=== PATIENT | male | born 1940 ===

== ENCOUNTER 2020-02-25 07:49 | Observation (INO) | payer MEDICARE ==
--- NOTE | 2020-02-25 08:30 | Emergency Department Report ---
ED Altered Mental Status HPI - General Chief Complaint: Altered Mental Status Stated Complaint: ALTERED MENTAL STATUS Time Seen by Provider: 02/25/20 08:22 Source: police, EMS Mode of arrival: Stretcher Limitations: Altered Mental Status - History of Present Illness Initial Comments: Patient is a 69-year-old male found by police wandering on the street in a diaper unable to provide personal information. Patient presents as altered mental status, unable to communicate any pertinent history, tracks interviewer with eyes, answers incomprehensibly. - Related Data Allergies Allergy/AdvReac Type Severity Reaction Status Date / Time Unable to Assess Allergy Unverified 02/25/20 09:12 ED Review of Systems ROS: Stated complaint: ALTERED MENTAL STATUS Other details as noted in HPI Comment: Unobtainable due to pts medical conditions ED Past Medical Hx - Past Medical History Additional medical history: PMH unknown ED Physical Exam - General Limitations: Altered Mental Status General appearance: alert, in no apparent distress - Head Head exam: Present: atraumatic, normocephalic - Eye Eye exam: Present: normal appearance - ENT ENT exam: Present: mucous membranes moist - Neck Neck exam: Present: normal inspection - Respiratory Respiratory exam: Present: normal lung sounds bilaterally. Absent: respiratory distress - Cardiovascular Cardiovascular Exam: Present: regular rate, normal rhythm. Absent: systolic murmur, diastolic murmur, rubs, gallop - GI/Abdominal GI/Abdominal exam: Present: soft, normal bowel sounds - Rectal Rectal exam: Present: deferred - Extremities Exam Extremities exam: Present: normal inspection - Back Exam Back exam: Present: normal inspection - Neurological Exam Neurological exam: Present: alert, altered - Psychiatric Psychiatric exam: Present: normal affect - Skin Skin exam: Present: warm, dry, intact, normal color. Absent: rash ED Course Vital Signs 02/25/20 02/25/20 02/25/20 08:02 08:16 08:20 Temperature 96.7 F L Pulse Rate 78 82 Respiratory 22 19 Rate Blood Pressure 144/75 Blood Pressure 140/84 [Right] O2 Sat by Pulse 97 98 96 Oximetry 02/25/20 02/25/20 02/25/20 08:40 09:00 09:20 Temperature Pulse Rate 73 88 122 H Respiratory 16 19 18 Rate Blood Pressure 144/75 141/94 141/94 Blood Pressure [Right] O2 Sat by Pulse 98 93 95 Oximetry 02/25/20 02/25/20 02/25/20 09:40 10:12 10:40 Temperature Pulse Rate 87 Respiratory 15 10 L 16 Rate Blood Pressure 151/79 151/79 127/67 Blood Pressure [Right] O2 Sat by Pulse 99 97 97 Oximetry 02/25/20 02/25/20 02/25/20 10:49 11:00 11:20 Temperature 98.4 F Pulse Rate 92 H 99 H Respiratory 14 15 Rate Blood Pressure 151/79 121/59 Blood Pressure [Right] O2 Sat by Pulse 94 98 Oximetry 02/25/20 02/25/20 11:40 12:00 Temperature Pulse Rate 104 H 105 H Respiratory 17 16 Rate Blood Pressure 107/62 126/75 Blood Pressure [Right] O2 Sat by Pulse 96 93 Oximetry - Reevaluation(s) Reevaluation #1: 02/25/20 12:53 Police at bedside unable to identify male with fingerprinting. Despite several hours of observation in the emergency department, unable to identify patient, no missing reports filed, social service assistant unable to provide additional support at present time. Patient remains alert in no acute distress, is responsive to questioning but unable to phonate complete responses. Patient speaks without slurring, however, is largely aphasic with responses. 02/25/20 12:54 - Lab Data Result diagrams: 02/25/20 08:46 02/25/20 08:46 Lab Results 02/25/20 02/25/20 02/25/20 Range/Units 08:46 08:46 08:46 WBC 11.1 H (4.5-11.0) K/mm3 RBC 5.46 H (3.65-5.03) M/mm3 Hgb 16.0 H (11.8-15.2) gm/dl Hct 48.4 H (35.5-45.6) % MCV 89 (84-94) fl MCH 29 (28-32) pg MCHC 33 (32-34) % RDW 15.4 H (13.2-15.2) % Plt Count 204 (140-440) K/mm3 Lymph % (Auto) 17.8 (13.4-35.0) % [place] % (Auto) 7.4 H (0.0-7.3) % Eos % (Auto) 2.3 (0.0-4.3) % Baso % (Auto) 0.6 (0.0-1.8) % Lymph # (Auto) 2.0 (1.2-5.4) K/mm3 [place] # (Auto) 0.8 (0.0-0.8) K/mm3 Eos # (Auto) 0.3 (0.0-0.4) K/mm3 Baso # (Auto) 0.1 (0.0-0.1) K/mm3 Seg Neutrophils % 71.9 H (40.0-70.0) % Seg Neutrophils # 8.0 H (1.8-7.7) K/mm3 Sodium 136 L (137-145) mmol/L Potassium 4.4 (3.6-5.0) mmol/L Chloride 104.7 (98-107) mmol/L Carbon Dioxide 23 (22-30) mmol/L Anion Gap 13 mmol/L BUN 11 (9-20) mg/dL Creatinine 0.8 (0.8-1.3) mg/dL Estimated GFR > 60 ml/min BUN/Creatinine Ratio 14 % Glucose 107 H (75-100) mg/dL Calcium 9.0 (8.4-10.2) mg/dL Total Bilirubin 0.40 (0.1-1.2) mg/dL AST 24 (5-40) units/L ALT 20 (7-56) units/L Alkaline Phosphatase 77 (35-129) units/L Ammonia 33.0 (25-60) umol/L Troponin T < 0.010 (0.00-0.029) ng/mL Total Protein 6.7 (6.3-8.2) g/dL Albumin 3.6 L (3.9-5) g/dL Albumin/Globulin Ratio 1.2 % Urine Color (Yellow) Urine Turbidity (Clear) Urine pH (5.0-7.0) Ur Specific [place] (1.003-1.030) Urine Protein (Negative) mg/dL Urine Glucose (UA) (Negative) mg/dL Urine Ketones (Negative) mg/dL Urine Blood (Negative) Urine Nitrite (Negative) Urine Bilirubin (Negative) Urine Urobilinogen (<2.0) mg/dL Ur Leukocyte Esterase (Negative) Urine WBC (Auto) (0.0-6.0) /HPF Urine RBC (Auto) (0.0-6.0) /HPF U Epithel Cells (Auto) (0-13.0) /HPF Urine Mucus /HPF Salicylates (2.8-20.0) mg/dL Acetaminophen (10.0-30.0) ug/mL Plasma/Serum Alcohol (0-0.07) % 02/25/20 02/25/20 02/25/20 Range/Units 08:46 08:46 08:46 WBC (4.5-11.0) K/mm3 RBC (3.65-5.03) M/mm3 Hgb (11.8-15.2) gm/dl Hct (35.5-45.6) % MCV (84-94) fl MCH (28-32) pg MCHC (32-34) % RDW (13.2-15.2) % Plt Count (140-440) K/mm3 Lymph % (Auto) (13.4-35.0) % [place] % (Auto) (0.0-7.3) % Eos % (Auto) (0.0-4.3) % Baso % (Auto) (0.0-1.8) % Lymph # (Auto) (1.2-5.4) K/mm3 [place] # (Auto) (0.0-0.8) K/mm3 Eos # (Auto) (0.0-0.4) K/mm3 Baso # (Auto) (0.0-0.1) K/mm3 Seg Neutrophils % (40.0-70.0) % Seg Neutrophils # (1.8-7.7) K/mm3 Sodium (137-145) mmol/L Potassium (3.6-5.0) mmol/L Chloride (98-107) mmol/L Carbon Dioxide (22-30) mmol/L Anion Gap mmol/L BUN (9-20) mg/dL Creatinine (0.8-1.3) mg/dL Estimated GFR ml/min BUN/Creatinine Ratio % Glucose (75-100) mg/dL Calcium (8.4-10.2) mg/dL Total Bilirubin (0.1-1.2) mg/dL AST (5-40) units/L ALT (7-56) units/L Alkaline Phosphatase (35-129) units/L Ammonia (25-60) umol/L Troponin T (0.00-0.029) ng/mL Total Protein (6.3-8.2) g/dL Albumin (3.9-5) g/dL Albumin/Globulin Ratio % Urine Color (Yellow) Urine Turbidity (Clear) Urine pH (5.0-7.0) Ur Specific [place] (1.003-1.030) Urine Protein (Negative) mg/dL Urine Glucose (UA) (Negative) mg/dL Urine Ketones (Negative) mg/dL Urine Blood (Negative) Urine Nitrite (Negative) Urine Bilirubin (Negative) Urine Urobilinogen (<2.0) mg/dL Ur Leukocyte Esterase (Negative) Urine WBC (Auto) (0.0-6.0) /HPF Urine RBC (Auto) (0.0-6.0) /HPF U Epithel Cells (Auto) (0-13.0) /HPF Urine Mucus /HPF Salicylates 1.3 L (2.8-20.0) mg/dL Acetaminophen 5.0 L (10.0-30.0) ug/mL Plasma/Serum Alcohol < 0.01 (0-0.07) % 02/25/20 Range/Units 09:52 WBC (4.5-11.0) K/mm3 RBC (3.65-5.03) M/mm3 Hgb (11.8-15.2) gm/dl Hct (35.5-45.6) % MCV (84-94) fl MCH (28-32) pg MCHC (32-34) % RDW (13.2-15.2) % Plt Count (140-440) K/mm3 Lymph % (Auto) (13.4-35.0) % [place] % (Auto) (0.0-7.3) % Eos % (Auto) (0.0-4.3) % Baso % (Auto) (0.0-1.8) % Lymph # (Auto) (1.2-5.4) K/mm3 [place] # (Auto) (0.0-0.8) K/mm3 Eos # (Auto) (0.0-0.4) K/mm3 Baso # (Auto) (0.0-0.1) K/mm3 Seg Neutrophils % (40.0-70.0) % Seg Neutrophils # (1.8-7.7) K/mm3 Sodium (137-145) mmol/L Potassium (3.6-5.0) mmol/L Chloride (98-107) mmol/L Carbon Dioxide (22-30) mmol/L Anion Gap mmol/L BUN (9-20) mg/dL Creatinine (0.8-1.3) mg/dL Estimated GFR ml/min BUN/Creatinine Ratio % Glucose (75-100) mg/dL Calcium (8.4-10.2) mg/dL Total Bilirubin (0.1-1.2) mg/dL AST (5-40) units/L ALT (7-56) units/L Alkaline Phosphatase (35-129) units/L Ammonia (25-60) umol/L Troponin T (0.00-0.029) ng/mL Total Protein (6.3-8.2) g/dL Albumin (3.9-5) g/dL Albumin/Globulin Ratio % Urine Color Yellow (Yellow) Urine Turbidity Clear (Clear) Urine pH 5.0 (5.0-7.0) Ur Specific [place] 1.018 (1.003-1.030) Urine Protein <15 mg/dl (Negative) mg/dL Urine Glucose (UA) Neg (Negative) mg/dL Urine Ketones Neg (Negative) mg/dL Urine Blood Neg (Negative) Urine Nitrite Neg (Negative) Urine Bilirubin Neg (Negative) Urine Urobilinogen 2.0 (<2.0) mg/dL Ur Leukocyte Esterase Neg (Negative) Urine WBC (Auto) 2.0 (0.0-6.0) /HPF Urine RBC (Auto) 4.0 (0.0-6.0) /HPF U Epithel Cells (Auto) 1.0 (0-13.0) /HPF Urine Mucus 2+ /HPF Salicylates (2.8-20.0) mg/dL Acetaminophen (10.0-30.0) ug/mL Plasma/Serum Alcohol (0-0.07) % Vital Signs 02/25/20 02/25/20 02/25/20 08:02 08:16 08:20 Temperature 96.7 F L Pulse Rate 78 82 Respiratory 22 19 Rate Blood Pressure 144/75 Blood Pressure 140/84 [Right] O2 Sat by Pulse 97 98 96 Oximetry 02/25/20 02/25/20 02/25/20 08:40 09:00 09:20 Temperature Pulse Rate 73 88 122 H Respiratory 16 19 18 Rate Blood Pressure 144/75 141/94 141/94 Blood Pressure [Right] O2 Sat by Pulse 98 93 95 Oximetry 02/25/20 02/25/20 02/25/20 09:40 10:12 10:40 Temperature Pulse Rate 87 Respiratory 15 10 L 16 Rate Blood Pressure 151/79 151/79 127/67 Blood Pressure [Right] O2 Sat by Pulse 99 97 97 Oximetry 02/25/20 02/25/20 02/25/20 10:49 11:00 11:20 Temperature 98.4 F Pulse Rate 92 H 99 H Respiratory 14 15 Rate Blood Pressure 151/79 121/59 Blood Pressure [Right] O2 Sat by Pulse 94 98 Oximetry 02/25/20 02/25/20 11:40 12:00 Temperature Pulse Rate 104 H 105 H Respiratory 17 16 Rate Blood Pressure 107/62 126/75 Blood Pressure [Right] O2 Sat by Pulse 96 93 Oximetry - EKG Data -: EKG Interpreted by Me (Sinus rhythm at 95, no ST-T changes, normal QRS) - Radiology Data Radiology results: report reviewed CHEST 1 VIEW INDICATION / CLINICAL INFORMATION: Altered Mental Status. COMPARISON: None available. FINDINGS: SUPPORT DEVICES: None. HEART / MEDIASTINUM: No significant abnormality. LUNGS / PLEURA: Small peripheral nodule in the right upper lung No pneumothorax. ADDITIONAL FINDINGS: No significant additional findings. IMPRESSION: Small peripheral nodule in the right upper lung may represent a calcified granuloma. No other significant abnormality. Signer Name: Jose Sim MD FACR Signed: 02/25/2020 8:47 AM Workstation Name: [id number] Transcribed By: MS Dictated By: Jose Sim MD Electr onically Authenticated By: Jose Sim MD Signed Date/Time: 02/25/[address] SCAN OF THE HEAD: INDICATION / CLINICAL INFORMATION: 69 years Male; Altered Mental Status. TECHNIQUE: Routine CT head without contrast. All CT scans at this location are performed using CT dose reduction for ALARA by means of automated exposure control. COMPARISON: None. FINDINGS: BRAIN / INTRACRANIAL CONTENTS: No acute hemorrhage, mass effect, midline shift, hydrocephalus, or acute, large territorial infarct. No chronic infarct or focal atrophy. Cortical involution more on the left side; volume loss in the medial temporal lobe more on the left side; mild ventricular asymmetry, larger on the left side, probably due to compensatory enlargement; subtle white matter periventricular low-attenua tion attenuation areas probably due to chronic small vessel disease CRANIOCERVICAL JUNCTION: No significant abnormality. ORBITS: No significant abnormality of visualized orbits. SINUSES / MASTOIDS: No significant abnormality of the visualized paranasal sinuses or mastoid air cells. ADDITIONAL FINDINGS: None. IMPRESSION: No acute focal parenchymal lesion in the brain; cortical involution more on the left side Signer Name: Cm Hobson MD Signed: 02/25/2020 10:51 AM Workstation Name: [id number] Transcribed By: BS Dictated By: Cm Calvo MD Electronically Authenticated By: Cm Calvo MD Signed Date/Time: 02/25/20 1051 Critical care attestation.: If time is entered above; I have spent that time in minutes in the direct care of this critically ill patient, excluding procedure time. ED Disposition Clinical Impression: Altered mental status Disposition: DC-09 OP ADMIT IP TO THIS HOSP Is pt being admited?: Yes Condition: Stable
--- NOTE | 2020-02-25 08:52 | XRay Report ---
CHEST 1 VIEW INDICATION / CLINICAL INFORMATION: Altered Mental Status. COMPARISON: None available. FINDINGS: SUPPORT DEVICES: None. HEART / MEDIASTINUM: No significant abnormality. LUNGS / PLEURA: Small peripheral nodule in the right upper lung No pneumothorax. ADDITIONAL FINDINGS: No significant additional findings. IMPRESSION: Small peripheral nodule in the right upper lung may represent a calcified granuloma. No other signifi cant abnormality. Signer Name: Joes Sim MD FACR Signed: 02/25/2020 8:47 AM Workstation Name: [id number]
[2020-02-25 09:45] LABS: Basophils # (Auto) 0.1 K/mm3 (0.0-0.1); Basophils % (Auto) 0.6 % (0.0-1.8); Eosinophils # (Auto) 0.3 K/mm3 (0.0-0.4); Eosinophils % (Auto) 2.3 % (0.0-4.3); Hematocrit 48.4 % (35.5-45.6); Lymphocytes % (Auto) 17.8 % (13.4-35.0); Mean Corpuscular HGB Conc 33 % (32-34); Mean Corpuscular Volume 89 fl (84-94); Monocytes # (Auto) 0.8 K/mm3 (0.0-0.8); Monocytes % (Auto) 7.4 % (0.0-7.3); Platelet Count 204 K/mm3 (140-440); Red Blood Count 5.46 M/mm3 (3.65-5.03); Red Cell Distribution Width 15.4 % (13.2-15.2)
[2020-02-25 09:52] LABS: Alanine Aminotransferase 20 units/L (7-56); Albumin 3.6 g/dL (3.9-5); BUN/Creatinine Ratio 14; Blood Urea Nitrogen 11 mg/dL (9-20); Hemolysis Index 41
[2020-02-25 10:20] LABS: Bilirubin,Urine NEG (Negative); Blood,Urine NEG (Negative); Color,Urine Yellow (Yellow); Mucus,Urine 2+ /HPF; Protein,Urine <15 mg/dL mg/dL (Negative)
--- NOTE | 2020-02-25 10:55 | Cat Scan Report ---
NONENHANCED CT SCAN OF THE HEAD: INDICATION / CLINICAL INFORMATION: 69 years Male; Altered Mental Status. TECHNIQUE: Routine CT head without contrast. All CT scans at this location are performed using CT dos e reduction for ALARA by means of automated exposure control. COMPARISON: None. FINDINGS: BRAIN / INTRACRANIAL CONTENTS: No acute hemorrhage, mass effect, midline shift, hydrocephalus, or ac jamul, large territorial infarct. No chronic infarct or focal atrophy. Cortical involution more on the left side; volume loss in the medial temporal lobe more on the left side; mild ventricular asymmetry, larger on the left side, probably due to compensatory enlargement; subtle white matter periventricul ar low-attenuation attenuation areas probably due to chronic small vessel disease CRANIOCERVICAL JUNCTION: No significant abnormality. ORBITS: No significant abnormality of visualized orbits. SINUSES / MASTOIDS: No significant abnormality of the visualized paranasal sinuses or mastoid air jay ls. ADDITIONAL FINDINGS: None. IMPRESSION: No acute focal parenchymal lesion in the brain; cortical involution more on the left side Signer Name: Cm Hobson MD Signed: 02/25/2020 10:51 AM Workstation Name: [id number]
--- NOTE | 2020-02-25 14:24 | History and Physical Report ---
History of Present Illness Date of examination: 02/25/20 Date of admission: 02/25/2020 Chief complaint: Altered level of consciousness Found by police wandering on the roads History of present illness: 69-year-old male patient was found by police wandering on the street in a diaper confused and unable to provide personal information. Patient presents as altered mental status, unable to communicate or give any information including his name Patient is confused, very calm, not in acute distress, No other history available Initial work-up with CT head without contrast no acute abnormality, cortical involution in the left side Vital signs stable, CBC and CMP reveal mild leukocytosis, very minimal hyponatremia Urine analysis within normal limits Past History Past Medical History: No medical history (Unknown) Past Surgical History: No surgical history (Unknown) Social history: no significant social history (Unknown) Family history: no significant family history (Unknown) Medications and Allergies Allergies Allergy/AdvReac Type Severity Reaction Status Date / Time clonidine AdvReac Unknown Verified 02/25/20 16:01 Home Medications Medication Instructions Recorded Confirmed Last Taken Type AtorvaSTATin [Lipitor] 40 mg PO QHS 02/25/20 02/25/20 Unknown History Divalproex Sodium [Depakote 125 mg PO DAILY 02/25/20 02/25/20 Unknown History Sprinkle] Furosemide 20 mg PO DAILY 02/25/20 02/25/20 Unknown History Memantine 10 mg PO BID 02/25/20 02/25/20 Unknown History Metoprolol 50 mg PO BID 02/25/20 02/25/20 Unknown History RX: Aspirin 325 mg PO QDAY 02/25/20 02/25/20 Unknown History Review of Systems ROS unobtainable: due to mental status Exam - Constitutional Vitals: Temp Pulse Resp BP Pulse Ox 98.4 F 105 H 16 126/75 93 02/25/20 10:49 02/25/20 12:00 02/25/20 12:00 02/25/20 12:00 02/25/20 12:00 General appearance: Present: no acute distress, obese, other (Confused, nonverbal) - EENT Eyes: Present: PERRL, EOM intact - Neck Neck: Present: supple, normal ROM - Respiratory Respiratory effort: normal Respiratory: bilateral: diminished, negative: rales, rhonchi, wheezing - Cardiovascular Rhythm: regular Heart Sounds: Present: S1 & S2 - Extremities Extremities: no ischemia, No edema - Abdominal General gastrointestinal: Present: soft, non-tender, non-distended, normal bowel sounds - Integumentary Integumentary: Present: clear, warm - Musculoskeletal Musculoskeletal: other (Unable to assess as patient is not cooperative) - Psychiatric Psychiatric: other ( confused nonverbal) - Neurologic Neurologic: moves all extremities, other (Nonverbal) HEART Score - HEART Score Troponin: Troponin T < 0.010 ng/mL (0.00-0.029) 02/25/20 08:46 Results - Labs CBC & Chem 7: 02/25/20 08:46 02/25/20 08:46 Labs: Abnormal lab results 02/25/20 02/25/20 02/25/20 Range/Units 08:46 08:46 08:46 WBC 11.1 H (4.5-11.0) K/mm3 RBC 5.46 H (3.65-5.03) M/mm3 Hgb 16.0 H (11.8-15.2) gm/dl Hct 48.4 H (35.5-45.6) % RDW 15.4 H (13.2-15.2) % [place] % (Auto) 7.4 H (0.0-7.3) % Seg Neutrophils % 71.9 H (40.0-70.0) % Seg Neutrophils # 8.0 H (1.8-7.7) K/mm3 Sodium 136 L (137-145) mmol/L Glucose 107 H (75-100) mg/dL Albumin 3.6 L (3.9-5) g/dL Salicylates 1.3 L (2.8-20.0) mg/dL Acetaminophen (10.0-30.0) ug/mL 02/25/20 Range/Units 08:46 WBC (4.5-11.0) K/mm3 RBC (3.65-5.03) M/mm3 Hgb (11.8-15.2) gm/dl Hct (35.5-45.6) % RDW (13.2-15.2) % [place] % (Auto) (0.0-7.3) % Seg Neutrophils % (40.0-70.0) % Seg Neutrophils # (1.8-7.7) K/mm3 Sodium (137-145) mmol/L Glucose (75-100) mg/dL Albumin (3.9-5) g/dL Salicylates (2.8-20.0) mg/dL Acetaminophen 5.0 L (10.0-30.0) ug/mL Assessment and Plan --Metabolic encephalopathy; Neurochecks, CT head negative Consider MRI brain if no improvement Consider neurology evaluation --Obesity; BMI 33.5 May need weight reduction when medically stable --DVT prophylaxis; Lovenox
[2020-02-25] MEDS ORDERED: SODIUM CHLORIDE 0.9% 1000 ML 1,000 ML IV SCH (14:30)
[2020-02-25] MEDS: FUROSEMIDE 20 MG TAB PO SCH (17:18)
[2020-02-25] MEDS: DIVALPROEX SPRINKLE 125 MG CAP PO SCH (17:49)
[2020-02-25] MEDS ORDERED: ENOXAPARIN 40 MG/0.4 ML INJ SUB-Q SCH (22:00)
[2020-02-25] MEDS: MEMANTINE 10 MG TAB PO SCH (22:49)
[2020-02-26] MEDS ORDERED: ASPIRIN 325 MG TAB PO SCH (10:00)
--- NOTE | 2020-02-26 10:26 | Progress Note ---
History Interval history: I have seen and examined the patient at the bedside this morning Patient is still confused however alert and awake not in acute distress When we are trying to feed he is tolerating Vital signs stable Hospitalist Physical - Constitutional Vitals: Temp Pulse Resp BP Pulse Ox 98.6 F 94 H 16 118/63 89 02/26/20 08:58 02/26/20 08:58 02/26/20 08:58 02/26/20 08:58 02/26/20 09:26 General appearance: Present: no acute distress, obese, other (Confused, nonverbal) HEART Score - HEART Score Troponin: Troponin T < 0.010 ng/mL (0.00-0.029) 02/25/20 08:46 Results - Labs CBC & Chem 7: 02/25/20 08:46 02/25/20 08:46 Labs: Laboratory Last Values WBC 11.1 K/mm3 (4.5-11.0) H 02/25/20 08:46 RBC 5.46 M/mm3 (3.65-5.03) H 02/25/20 08:46 Hgb 16.0 gm/dl (11.8-15.2) H 02/25/20 08:46 Hct 48.4 % (35.5-45.6) H 02/25/20 08:46 MCV 89 fl (84-94) 02/25/20 08:46 MCH 29 pg (28-32) 02/25/20 08:46 MCHC 33 % (32-34) 02/25/20 08:46 RDW 15.4 % (13.2-15.2) H 02/25/20 08:46 Plt Count 204 K/mm3 (140-440) 02/25/20 08:46 Lymph % (Auto) 17.8 % (13.4-35.0) 02/25/20 08:46 [place] % (Auto) 7.4 % (0.0-7.3) H 02/25/20 08:46 Eos % (Auto) 2.3 % (0.0-4.3) 02/25/20 08:46 Baso % (Auto) 0.6 % (0.0-1.8) 02/25/20 08:46 Lymph # (Auto) 2.0 K/mm3 (1.2-5.4) 02/25/20 08:46 [place] # (Auto) 0.8 K/mm3 (0.0-0.8) 02/25/20 08:46 Eos # (Auto) 0.3 K/mm3 (0.0-0.4) 02/25/20 08:46 Baso # (Auto) 0.1 K/mm3 (0.0-0.1) 02/25/20 08:46 Seg Neutrophils % 71.9 % (40.0-70.0) H 02/25/20 08:46 Seg Neutrophils # 8.0 K/mm3 (1.8-7.7) H 02/25/20 08:46 Sodium 136 mmol/L (137-145) L 02/25/20 08:46 Potassium 4.4 mmol/L (3.6-5.0) 02/25/20 08:46 Chloride 104.7 mmol/L (98-107) 02/25/20 08:46 Carbon Dioxide 23 mmol/L (22-30) 02/25/20 08:46 Anion Gap 13 mmol/L 02/25/20 08:46 BUN 11 mg/dL (9-20) 02/25/20 08:46 Creatinine 0.8 mg/dL (0.8-1.3) 02/25/20 08:46 Estimated GFR > 60 ml/min 02/25/20 08:46 BUN/Creatinine Ratio 14 % 02/25/20 08:46 Glucose 107 mg/dL (75-100) H 02/25/20 08:46 Calcium 9.0 mg/dL (8.4-10.2) 02/25/20 08:46 Total Bilirubin 0.40 mg/dL (0.1-1.2) 02/25/20 08:46 AST 24 units/L (5-40) 02/25/20 08:46 ALT 20 units/L (7-56) 02/25/20 08:46 Alkaline Phosphatase 77 units/L (35-129) 02/25/20 08:46 Ammonia 33.0 umol/L (25-60) 02/25/20 08:46 Troponin T < 0.010 ng/mL (0.00-0.029) 02/25/20 08:46 Total Protein 6.7 g/dL (6.3-8.2) 02/25/20 08:46 Albumin 3.6 g/dL (3.9-5) L 02/25/20 08:46 Albumin/Globulin Ratio 1.2 % 02/25/20 08:46 Urine Color Yellow (Yellow) 02/25/20 09:52 Urine Turbidity Clear (Clear) 02/25/20 09:52 Urine pH 5.0 (5.0-7.0) 02/25/20 09:52 Ur Specific [place] 1.018 (1.003-1.030) 02/25/20 09:52 Urine Protein <15 mg/dl mg/dL (Negative) 02/25/20 09:52 Urine Glucose (UA) Neg mg/dL (Negative) 02/25/20 09:52 Urine Ketones Neg mg/dL (Negative) 02/25/20 09:52 Urine Blood Neg (Negative) 02/25/20 09:52 Urine Nitrite Neg (Negative) 02/25/20 09:52 Urine Bilirubin Neg (Negative) 02/25/20 09:52 Urine Urobilinogen 2.0 mg/dL (<2.0) 02/25/20 09:52 Ur Leukocyte Esterase Neg (Negative) 02/25/20 09:52 Urine WBC (Auto) 2.0 /HPF (0.0-6.0) 02/25/20 09:52 Urine RBC (Auto) 4.0 /HPF (0.0-6.0) 02/25/20 09:52 U Epithel Cells (Auto) 1.0 /HPF (0-13.0) 02/25/20 09:52 Urine Mucus 2+ /HPF 02/25/20 09:52 Salicylates 1.3 mg/dL (2.8-20.0) L 02/25/20 08:46 Acetaminophen 5.0 ug/mL (10.0-30.0) L 02/25/20 08:46 Plasma/Serum Alcohol < 0.01 % (0-0.07) 02/25/20 08:46 Eng/IV: Voiding Method Condom Catheter IV Catheter Type [Right Wrist] Peripheral IV Active Medications - Current Medications Current Medications: Generic Name Dose Route Start Last Admin Trade Name Freq PRN Reason Stop Dose Admin Aspirin 325 mg 02/26/20 10:00 Aspirin 325 Mg Tab PO QDAY TROY Atorvastatin Calcium 40 mg 02/25/20 22:00 02/25/20 22:48 Atorvastatin 40 Mg Tab PO 40 mg QHS TROY Administration Divalproex Sodium 125 mg 02/25/20 18:00 02/25/20 17:49 Divalproex Sprinkle 125 Mg Cap PO 125 mg DAILY TROY Administration Enoxaparin Sodium 40 mg 02/25/20 22:00 02/25/20 22:48 Enoxaparin 40 Mg/0.4 Ml Inj SUB-Q 40 mg QDAY@2200 TROY Administration Protocol Furosemide 20 mg 02/25/20 17:00 02/25/20 17:18 Furosemide 20 Mg Tab PO 20 mg QDAY TROY Administration Sodium Chloride 1,000 mls @ 100 mls/hr 02/25/20 14:30 02/26/20 06:29 Nacl 0.9% 1000 Ml IV 100 mls/hr DIRECT TROY Administration Memantine 10 mg 02/25/20 22:00 02/25/20 22:49 Memantine 10 Mg Tab PO 10 mg Q12HR TROY Administration
[2020-02-26 12:39] VITALS: BP 127/82
[2020-02-26] MEDS: MEMANTINE 10 MG TAB PO SCH (12:46)
[2020-02-26] MEDS: DIVALPROEX SPRINKLE 125 MG CAP PO SCH (12:47)
[2020-02-26] MEDS: FUROSEMIDE 20 MG TAB PO SCH (12:51)
--- NOTE | 2020-02-26 15:24 | Discharge Summary ---
Providers - Providers Date of Admission: 02/25/20 14:26 Date of discharge: 02/26/20 Attending physician: NAA LEAL Primary care physician: MERCHANDISING CONSULTANT Hospitalization Condition: Stable Disposition: DC-01 TO HOME OR SELFCARE Time spent for discharge: 32 min Core Measure Documentation - Palliative Care Palliative Care/ Comfort Measures: Not Applicable - Core Measures Any of the following diagnoses?: none Exam - Constitutional Vitals: Temp Pulse Resp BP Pulse Ox 98.9 F 112 H 20 127/82 94 02/26/20 11:19 02/26/20 13:00 02/26/20 11:19 02/26/20 11:19 02/26/20 11:19 General appearance: Present: no acute distress, well-nourished, other (Pleasantly confused) - EENT Eyes: Present: PERRL, EOM intact - Neck Neck: Present: supple, normal ROM - Respiratory Respiratory effort: labored Respiratory: bilateral: diminished, negative: rales, rhonchi, wheezing - Cardiovascular Rhythm: regular Heart Sounds: Present: S1 & S2 - Extremities Extremities: no ischemia, No edema - Abdominal General gastrointestinal: Present: soft, non-tender, non-distended, normal bowel sounds - Integumentary Integumentary: Present: clear, warm - Musculoskeletal Musculoskeletal: strength equal bilaterally - Psychiatric Psychiatric: other (Noncommunicative and confused) - Neurologic Neurologic: other (Noncommunicative confused) Plan Activity: advance as tolerated, fall precautions Diet: other (Diet as tolerated) Additional Instructions: Continuous supervision. Patient's does not want home health services as patient already has a caregiver. Fall precautions. If you have worsening symptoms contact MD or go to emergency room Follow up with: PRIMARY CARE,MD [Primary Care Provider] - 3-5 Days
== END 2020-02-26 18:17 | disposition home or self-care (01) ==
LOC: ED 07:49 → EDBD 14:26 → 3A 14:26 → 4A 21:03
PROVIDERS: ADMIT Internal Medicine; ATTEND Internal Medicine
DX: G93.41 Metabolic encephalopathy (principal); E66.9 Obesity, unspecified; Z68.33 Body mass index [BMI] 33.0-33.9, adult; Z79.82 Long term (current) use of aspirin
CPT/HCPCS: 36415; 70450; 71045; 80053; 81001; 82140; 84484; 85025; 93005; 96360; 96361; 96372; 99285; A9270; G0378; J1650; J7030; 80320; G0480

== ENCOUNTER 2020-08-05 05:57 | Inpatient (IN) | payer MEDICARE, OTHER ==
--- NOTE | 2020-08-05 07:44 | Emergency Department Report ---
HPI - General Chief Complaint: Abdominal Pain Time Seen by Provider: 08/05/20 07:32 - HPI HPI: Room 17 The patient is an 80-year-old male present with a chief complaint of abdominal pain. The patient has a history of dementia and answers "yeah" to all questions. called EMS this evening stating that the patient had abdominal pain. HPI update Spoke with the patient's spouse who states that the patient awakened her this morning at approximate 04: 30 appearing panicked. And when she asked him if he had chest pain he acknowledged yes. She states he acknowledges for approximately 30 minutes until EMS arrived. Upon EMS arrival she states he no longer complained of chest pain but he indicated he had abdominal pain ED Past Medical Hx - Past Medical History Hx Hypertension: Yes Hx CVA: Yes Hx Kidney Stones: Yes Hx Dementia: Yes Additional medical history: high cholesterol, a-fib - Surgical History Past Surgical History?: Yes Additional Surgical History: prostatectomy - Family History Family history: no significant - Social History Smoking Status: Unknown if ever smoked Substance Use Type: None - Medications Home Medications: Home Medications Medication Instructions Recorded Confirmed Last Taken Type Aspirin 325 mg PO QDAY 02/25/20 02/25/20 Unknown History AtorvaSTATin [Lipitor] 40 mg PO QHS 02/25/20 02/25/20 Unknown History Divalproex Sodium [Depakote 125 mg PO DAILY 02/25/20 02/25/20 Unknown History Sprinkle] Furosemide 20 mg PO DAILY 02/25/20 02/25/20 Unknown History Memantine 10 mg PO BID 02/25/20 02/25/20 Unknown History Metoprolol 50 mg PO BID 02/25/20 02/25/20 Unknown History ED Review of Systems ROS: Stated complaint: ABD PAIN, DEMENTIA Other details as noted in HPI Comment: Unobtainable due to pts medical conditions (Dementia) Physical Exam - Physical Exam Vital Signs: Vital Signs 08/05/20 08/05/20 06:22 06:43 Pulse Rate 79 70 Respiratory 15 16 Rate Blood Pressure 134/74 124/73 [Right] O2 Sat by Pulse 97 96 Oximetry Physical Exam: GENERAL: The patient is well-developed well-nourished male lying on stretcher not appearing to be in acute distress. [] HEENT: Normocephalic. Atraumatic. Extraocular motions are intact. Patient has moist mucous membranes. NECK: Supple. Trachea midline CHEST/LUNGS: Clear to auscultation. There is no respiratory distress noted. HEART/CARDIOVASCULAR: Irregularly irregular. There is no tachycardia. There is no gallop rub or murmur. ABDOMEN: Abdomen is soft, nontender. Patient has normal bowel sounds. There is no abdominal distention. SKIN: There is no rash. There is no edema. There is no diaphoresis. NEURO: The patient is awake and alert. The patient is cooperative. The patient answers "yeah" to any question asked of him. The patient has normal speech MUSCULOSKELETAL: There is no evidence of acute injury. ED Course Vital Signs 08/05/20 08/05/20 06:22 06:43 Pulse Rate 79 70 Respiratory 15 16 Rate Blood Pressure 134/74 124/73 [Right] O2 Sat by Pulse 97 96 Oximetry ED Medical Decision Making - Lab Data Result diagrams: 08/05/20 08:07 08/05/20 08:07 Laboratory Tests 08/05/20 08/05/20 08/05/20 08:07 08:07 08:07 WBC 10.9 RBC 5.38 H Hgb 15.9 H Hct 47.7 H MCV 89 MCH 30 MCHC 33 RDW 15.0 Plt Count 206 Lymph % (Auto) 26.7 Bladen % (Auto) 7.4 H Eos % (Auto) 4.3 Baso % (Auto) 0.6 Lymph # (Auto) 2.9 Bladen # (Auto) 0.8 Eos # (Auto) 0.5 H Baso # (Auto) 0.1 Seg Neutrophils % 61.0 Seg Neutrophils # 6.6 PT INR APTT Sodium 141 Potassium 4.4 Chloride 105.8 Carbon Dioxide 25 Anion Gap 15 BUN 11 Creatinine 0.8 Estimated GFR > 60 BUN/Creatinine Ratio 14 Glucose 88 Lactic Acid 1.40 Calcium 8.3 L Total Bilirubin 0.50 AST 19 ALT 16 Alkaline Phosphatase 78 Total Creatine Kinase 53 L CK-MB (CK-2) 1.5 CK-MB (CK-2) Rel Index 2.8 Troponin T < 0.010 Total Protein 6.3 Albumin 3.4 L Albumin/Globulin Ratio 1.2 Lipase 205 H Urine Bilirubin Urine RBC (Auto) Valproic Acid 08/05/20 08/05/20 08/05/20 08:07 08:07 Unknown WBC RBC Hgb Hct MCV MCH MCHC RDW Plt Count Lymph % (Auto) Bladen % (Auto) Eos % (Auto) Baso % (Auto) Lymph # (Auto) Bladen # (Auto) Eos # (Auto) Baso # (Auto) Seg Neutrophils % Seg Neutrophils # PT 13.4 INR 1.03 APTT 30.3 Sodium Potassium Chloride Carbon Dioxide Anion Gap BUN Creatinine Estimated GFR BUN/Creatinine Ratio Glucose Lactic Acid Calcium Total Bilirubin AST ALT Alkaline Phosphatase Total Creatine Kinase CK-MB (CK-2) CK-MB (CK-2) Rel Index Troponin T Total Protein Albumin Albumin/Globulin Ratio Lipase Urine Bilirubin Neg Urine RBC (Auto) 2.0 Valproic Acid 10.1 L - Radiology Data Radiology results: report reviewed (CT abdomen pelvis, chest x-ray), image reviewed (CT abdomen pelvis, chest x-ray) interpreted by me: Chest x-ray-no focal infiltrates, no pneumothorax. [address] [address] XRay Report Signed Patient: SCARLET GUILLEN MR#: [id number] : 1940 Acct:[id number] Age/Sex: 80 / M ADM Date: 08/05/20 Loc: ED Attending Dr: Ordering Physician: GAVINO HAN MD Date of Service: 08/05/20 Procedure(s): XR chest 1V ap Accession Number(s): [id number] cc: GAVINO HAN MD Fluoro Time In Minutes: CHEST 1 VIEW 08/05/2020 11:49 AM INDICATION / CLINICAL INFORMATION: Chest pain. COMPARISON: 02/25/20. FINDINGS: SUPPORT DEVICES: None. HEART / MEDIASTINUM: The heart size and pulmonary vasculature are normal. There is mild calcification in the aortic arch without aneurysm. LUNGS / PLEURA: No significant pulmonary or pleural abnormality. No pneumothorax. ADDITIONAL FINDINGS: No significant additional findings. IMPRESSION: No acute abnormality or significant change. Signer Name: Edward Muhammad MD Signed: 08/05/2020 12:18 PM Workstation Name: [id number] Transcribed By: RT Dictated By: Edward Muhammad MD Electronically Authenticated By: Edward Muhammad MD Signed Date/Time: 08/05/201217 DD/ 17 TD/TT: Print [address] [place] [address] Cat Scan Report Signed Patient: SCARLET GUILLEN MR#: [id number] : 1940 Acct:[id number] Age/Sex: 80 / M ADM Date: 08/05/20 Loc: ED Attending Dr: Ordering Physician: GAVINO HAN MD Date of Service: 08/05/20 Procedure(s): CT abdomen pelvis w con Accession Number(s): [id number] cc: GAVINO HAN MD CT ABDOMEN AND PELVIS WITH CONTRAST HISTORY: Abdominal pain. Acute generalized abdominal pain COMPARISON: None. TECHNIQUE: CT images of the abdomen and pelvis were obtained following administration of intravenous contrast. All CT scans at this location are performed using CT dose reduction for ALARA by means of automated exposure control. CONTRAST: 100 ml of intravenous contrast administered. FINDINGS: Lungs/bones: Lung bases are clear. There are degenerative changes within the spine with bilateral L5 pars defects and grade 1 anterolisthesis of L5 on S1. Abdomen/pelvis: A metallic foreign body is seen near the dome of the liver. The liver is otherwise unremarkable. The gallbladder, spleen containing granulomata, pancreas, adrenals, right kidney, and proximal GI tract appear unremarkable. There is a small simple cyst in the lower pole of the left kidney. Prostate appears to be surgically absent. There is mild smooth circumferential bladder wall thickening with otherwise normal appearance of the bladder. Moderate colonic diverticulosis with no acute inflammatory change identified. IMPRESSION: 1. No acute abnormality identified. 2. Incidental findings as above. Signer Name: Michael Hall MD Signed: 08/05/2020 11:30 AM Workstation Name: [email or web address] Transcribed By: ANDREW Dictated By: Michael Hall MD Electronically Authenticated By: Michael Hall MD Signed Date/Time: 08/05/20 1130 DD/ 1119 TD/TT: Print Cancel - Differential Diagnosis Gastritis, peptic ulcer disease, pancreatitis, mesenteric ischemia, Critical care attestation.: If time is entered above; I have spent that time in minutes in the direct care of this critically ill patient, excluding procedure time. ED Disposition Clinical Impression: Acute abdominal pain, Acute pancreatitis, Chest pain Disposition: OP ADMIT IP TO THIS HOSP Is pt being admited?: Yes Does the pt Need Aspirin: Yes Condition: Fair Instructions: Nonspecific Chest Pain, Adult Referrals: PRIMARY CARE,MD [Primary Care Provider] - 3-5 Days Time of Disposition: 11:48 (Hospitalist paged (Dr. Denny)) Heart Score - HEART Score History: Slightly suspicious EKG: Non-specific Age: > 65 Risk factors: > 3 risk factors or hx of atherosclerotic disease Troponin: < normal limit HEART Score: 5 - EKG Read Time Time EKG Completed: 06:34 EKG Read Time: 06:39
[2020-08-05 08:47] LABS: Basophils # (Auto) 0.1 K/mm3 (0.0-0.1); Basophils % (Auto) 0.6 % (0.0-1.8); Eosinophils # (Auto) 0.5 K/mm3 (0.0-0.4); Eosinophils % (Auto) 4.3 % (0.0-4.3); Hematocrit 47.7 % (35.5-45.6); Hemoglobin 15.9 gm/dl (11.8-15.2); Lymphocytes # (Auto) 2.9 K/mm3 (1.2-5.4); Lymphocytes % (Auto) 26.7 % (13.4-35.0); Mean Corpuscular HGB Conc 33 % (32-34); Mean Corpuscular Volume 89 fl (84-94); Monocytes # (Auto) 0.8 K/mm3 (0.0-0.8); Monocytes % (Auto) 7.4 % (0.0-7.3); Platelet Count 206 K/mm3 (140-440); Red Blood Count 5.38 M/mm3 (3.65-5.03)
[2020-08-05 09:12] LABS: Creatine Kinase MB 1.5 ng/mL (0.0-4.0)
[2020-08-05 09:14] LABS: Alanine Aminotransferase 16 units/L (7-56); Albumin 3.4 g/dL (3.9-5); BUN/Creatinine Ratio 14; Blood Urea Nitrogen 11 mg/dL (9-20); Calcium 8.3 mg/dL (8.4-10.2); Hemolysis Index 21
[2020-08-05 09:47] LABS: INR 1.03 (0.87-1.13)
[2020-08-05 09:52] LABS: Partial Thromboplastin Time 30.3 Sec. (24.2-36.6)
[2020-08-05 10:03] LABS: Bilirubin,Urine NEG (Negative); Blood,Urine NEG (Negative); Color,Urine Yellow (Yellow); Mucus,Urine FEW /HPF; Protein,Urine <15 mg/dL mg/dL (Negative)
--- NOTE | 2020-08-05 11:34 | Cat Scan Report ---
CT ABDOMEN AND PELVIS WITH CONTRAST HISTORY: Abdominal pain. Acute generalized abdominal pain COMPARISON: None. TECHNIQUE: CT images of the abdomen and pelvis were obtained following administration of intravenous contrast. All CT scans at this location are performed using CT dose reduction for ALARA by means of automated exposure control. CONTRAST: 100 ml of intravenous contrast administered. FINDINGS: Lungs/bones: Lung bases are clear. There are degenerative changes within the spine with bilateral L5 pars defects and grade 1 anterolisthesis of L5 on S1. Abdomen/pelvis: A metallic foreign body is seen near the dome of the liver. The liver is otherwise u nremarkable. The gallbladder, spleen containing granulomata, pancreas, adrenals, right kidney, and pr oximal GI tract appear unremarkable. There is a small simple cyst in the lower pole of the left kidne y. Prostate appears to be surgically absent. There is mild smooth circumferential bladder wall thickenin g with otherwise normal appearance of the bladder. Moderate colonic diverticulosis with no acute infl ammatory change identified. IMPRESSION: 1. No acute abnormality identified. 2. Incidental findings as above. Signer Name: Michael Hall MD Signed: 08/05/2020 11:30 AM Workstation Name: [email or web address]
[2020-08-05] MEDS ORDERED: ASPIRIN 325 MG TAB PO ONE (11:49)
--- NOTE | 2020-08-05 12:09 | History and Physical Report ---
History of Present Illness Chief complaint: His stomach is hurting History of present illness: 80 YO Male with Seizure Disorder, Vascular Dementia, Cerebral Atherosclerosis, 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 Patient has diminished cognition and is unable to provide detailed history. Patient history provided by EMS staff, ED staff, as well as patient who is available to discuss patient symptoms via telephone. As per the patient awakened at approximately 0430 hrs. appearing panicked and scared and was found to have pain in his chest. EMS was notified and upon arrival the patient was found to be in distress and subsequently transported to [facility] for further care and evaluation of the aforementioned symptoms. The patient was seen and evaluated in the emergency department. All lab and imaging studies reviewed. Upon further exam the patient localized and validated that his epigastric area was the source of his pain. Patient found to have symptoms consistent with acute pancreatitis. Patient admitted to medical floor and treated with supportive care. Patient denies fever, chills, palpitation, productive cough, skin rash, recent ill contacts, ingestion of food/water from new or different sources, or known exposure to COVID-19. Prior admission on 02/25/2020 reviewed. All medication listed at time of admission has been reconciled. Advanced care planning conducted in ED. Past History Past Medical History: atrial fib, seizures, stroke Past Surgical History: Other (Prostatectomy) Social history: , lives with family. denies: smoking, alcohol abuse Family history: diabetes, hypertension Medications and Allergies Allergies Allergy/AdvReac Type Severity Reaction Status Date / Time clonidine AdvReac Unknown Verified 02/25/20 16:01 Home Medications Medication Instructions Recorded Confirmed Last Taken Type Aspirin 325 mg PO QDAY 02/25/20 02/25/20 Unknown History AtorvaSTATin [Lipitor] 40 mg PO QHS 02/25/20 02/25/20 Unknown History Divalproex Sodium [Depakote 125 mg PO DAILY 02/25/20 02/25/20 Unknown History Sprinkle] Furosemide 20 mg PO DAILY 02/25/20 02/25/20 Unknown History Memantine 10 mg PO BID 02/25/20 02/25/20 Unknown History Metoprolol 50 mg PO BID 02/25/20 02/25/20 Unknown History Review of Systems ROS unobtainable: due to mental status Exam - Constitutional Vitals: Temp Pulse Resp BP Pulse Ox 70 16 124/73 96 08/05/20 06:43 08/05/20 06:43 08/05/20 06:43 08/05/20 06:43 General appearance: Present: mild distress, obese - EENT Eyes: Present: PERRL ENT: hearing intact, clear oral mucosa - Neck Neck: Present: supple, normal ROM - Respiratory Respiratory effort: normal Respiratory: bilateral: CTA - Cardiovascular Heart Sounds: Present: S1 & S2. Absent: rub, click - Extremities Extremities: pulses symmetrical, No edema Peripheral Pulses: within normal limits - Abdominal General gastrointestinal: Present: soft, tender, non-distended, normal bowel sounds. Absent: hepatomegaly, splenomegaly Localized gastrointestinal: tender: diffuse Male genitourinary: Present: normal - Integumentary Integumentary: Present: clear, warm, dry - Musculoskeletal Musculoskeletal: generalized weakness - Psychiatric Psychiatric: no appropriate mood/affect, no intact judgment & insight, no memory intact - Neurologic Neurologic: CNII-XII intact, moves all extremities HEART Score - HEART Score EKG: Non-specific Age: > 65 Risk factors: > 3 risk factors or hx of atherosclerotic disease Troponin: Troponin T < 0.010 ng/mL (0.00-0.029) 08/05/20 08:07 Troponin: < normal limit Results - Labs CBC & Chem 7: 08/05/20 08:07 08/05/20 08:07 Labs: Abnormal lab results 08/05/20 08/05/20 08/05/20 Range/Units 08:07 08:07 08:07 RBC 5.38 H (3.65-5.03) M/mm3 Hgb 15.9 H (11.8-15.2) gm/dl Hct 47.7 H (35.5-45.6) % Cherry % (Auto) 7.4 H (0.0-7.3) % Eos # (Auto) 0.5 H (0.0-0.4) K/mm3 Calcium 8.3 L (8.4-10.2) mg/dL Total Creatine Kinase 53 L (55-170) units/L Albumin 3.4 L (3.9-5) g/dL Lipase 205 H (13-60) units/L Valproic Acid 10.1 L (50-100) ug/mL Assessment and Plan - Patient Problems (1) Acute pancreatitis Current Visit: Yes Status: Acute Qualifiers: Acute pancreatitis complication: unspecified Plan to address problem: CT scan abdomen and pelvis, lipase level, serial abdominal exam, bowel rest, IV fluid resuscitation therapy, pain control, supportive care. (2) Vascular dementia Current Visit: Yes Status: Acute Qualifiers: Dementia behavioral disturbance: with behavioral disturbance Qualified Code(s): F01.51 - Vascular dementia with behavioral disturbance Plan to address problem: Verbal prompting, verbal redirection, benzodiazepine therapy as clinically indicated, supportive care. (3) Cerebral atherosclerosis Current Visit: Yes Status: Acute Plan to address problem: Risk factor reduction therapy, antiplatelet therapy as clinically indicated, supportive care. (4) Acute abdominal pain Current Visit: Yes Status: Acute Plan to address problem: CT scan abdomen and pelvis, serial abdominal exam, bowel rest, supportive care. (5) DVT prophylaxis Current Visit: Yes Status: Acute Plan to address problem: Prophylactic anticoagulation, SCD to bilateral lower extremities while in bed, (6) Advance care planning Current Visit: Yes Status: Acute Plan to address problem: Disease education conducted, patient is full code, care plan discussed, diagnosis discussed, prognosis discussed, patient family knowledges understanding and agree with care plan, +30 minutes.
[2020-08-05] MEDS ORDERED: ACETAMINOPHEN 325 MG TAB PO PRN (12:11)
[2020-08-05] MEDS ORDERED: ONDANSETRON 4 MG/2 ML INJ IV PRN (12:11)
[2020-08-05] MEDS ORDERED: ALBUTEROL 2.5 MG/3 ML NEBU IH PRN (12:11)
--- NOTE | 2020-08-05 12:24 | XRay Report ---
CHEST 1 VIEW 08/05/2020 11:49 AM INDICATION / CLINICAL INFORMATION: Chest pain. COMPARISON: 02/25/20. FINDINGS: SUPPORT DEVICES: None. HEART / MEDIASTINUM: The heart size and pulmonary vasculature are normal. There is mild calcification in the aortic arch without aneurysm. LUNGS / PLEURA: No significant pulmonary or pleural abnormality. No pneumothorax. ADDITIONAL FINDINGS: No significant additional findings. IMPRESSION: No acute abnormality or significant change. Signer Name: Edward Muhammad MD Signed: 08/05/2020 12:18 PM Workstation Name: [email or web address] [id number]
[2020-08-05] MEDS: SODIUM CHLORIDE 0.9% 1000 ML 1,000 ML IV SCH (15:02)
[2020-08-05] MEDS: MORPHINE 2 MG/1 ML INJ IV PRN (17:17)
[2020-08-05] MEDS: METOPROLOL TARTRATE 50 MG TAB PO SCH (21:24)
[2020-08-05] MEDS: MEMANTINE 10 MG TAB PO SCH (21:29)
[2020-08-05] MEDS ORDERED: NON-FORMULARY EACH (Metoprolol 50 MG) PO SCH (22:00)
[2020-08-05] MEDS ORDERED: MEMANTINE 10 MG PO SCH (22:00)
[2020-08-06] MEDS: FUROSEMIDE 20 MG TAB PO SCH (05:11)
[2020-08-06] MEDS: SODIUM CHLORIDE 0.9% 1000 ML 1,000 ML IV SCH (05:19)
[2020-08-06 05:58] LABS: Basophils % (Auto) 0.5 % (0.0-1.8); Eosinophils # (Auto) 0.3 K/mm3 (0.0-0.4); Eosinophils % (Auto) 3.4 % (0.0-4.3); Hemoglobin 15.6 gm/dl (11.8-15.2); Lymphocytes # (Auto) 2.3 K/mm3 (1.2-5.4); Lymphocytes % (Auto) 24.1 % (13.4-35.0); Mean Corpuscular HGB Conc 33 % (32-34); Mean Corpuscular Volume 89 fl (84-94); Monocytes # (Auto) 0.7 K/mm3 (0.0-0.8); Monocytes % (Auto) 7.5 % (0.0-7.3); Platelet Count 221 K/mm3 (140-440); Red Blood Count 5.28 M/mm3 (3.65-5.03); Red Cell Distribution Width 15.2 % (13.2-15.2)
[2020-08-06 06:19] LABS: Alanine Aminotransferase 16 units/L (7-56); Albumin 3.7 g/dL (3.9-5); BUN/Creatinine Ratio 15; Blood Urea Nitrogen 12 mg/dL (9-20); Calcium 8.1 mg/dL (8.4-10.2); Hemolysis Index 5
[2020-08-06] MEDS ORDERED: DIVALPROEX SPRINKLE 125 MG CAP PO SCH (10:00)
[2020-08-06] MEDS ORDERED: NON-FORMULARY EACH (Furosemide 20 MG) PO SCH (10:00)
[2020-08-06] MEDS ORDERED: ENOXAPARIN 30 MG/0.3 ML INJ SUB-Q SCH (10:00)
[2020-08-06] MEDS: MORPHINE 2 MG/1 ML INJ IV PRN ×2 (11:07→13:12)
[2020-08-06] MEDS: ENOXAPARIN 40 MG/0.4 ML INJ SUB-Q SCH (11:08)
--- NOTE | 2020-08-06 12:22 | Progress Note ---
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 Patient has diminished cognition and is unable to provide detailed history. Patient history provided by EMS staff, ED staff, as well as patient who is available to discuss patient symptoms via telephone. As per the patient awakened at approximately 0430 hrs. appearing panicked and scared and was found to have pain in his chest. EMS was notified and upon arrival the patient was found to be in distress and subsequently transported to [facility] for further care and evaluation of the aforementioned symptoms. The patient was seen and evaluated in the emergency department. All lab and imaging studies reviewed. Upon further exam the patient localized and validated that his epigastric area was the source of his pain. Patient found to have symptoms consistent with acute pancreatitis. Patient admitted to medical floor and treated with supportive care. Patient wi fe denies fever, chills, palpitation, productive cough, skin rash, recent ill contacts, ingestion of food/water from new or different sources, or known exposure to COVID-19. Prior admission on 02/25/2020 reviewed. 08/06: This morning patient evaluated and reviewed still confused I reviewed his previous hospitalization did not see that he had a neurological evaluation. He also was noted to be in A. fib although rate controlled will obtain cardiology consultation considering that he initially presented with chest pain. While he has an elevated lipase and it may have been that he got some pain medication prior to my exam there is no physical exam or imaging exam corresponded with acute pancreatitis. I have reached out to the and left her message. We will continue current management and anticipate discharge in 24 to 48 hours if patient remains stable, will obtain speech swallow and start on clear liquids and advance as tolerated (1) Acute pancreatitis Current Visit: Yes Status: Acute Qualifiers: Acute pancreatitis complication: unspecified Plan to address problem: CT scan abdomen and pelvis, lipase level, serial abdominal exam, bowel rest, IV fluid resuscitation therapy, pain control, supportive care. (2) Vascular dementia Current Visit: Yes Status: Acute Qualifiers: Dementia behavioral disturbance: with behavioral disturbance Qualified Code(s): F01.51 - Vascular dementia with behavioral disturbance Plan to address problem: Verbal prompting, verbal redirection, benzodiazepine therapy as clinically indicated, supportive care. (3) Cerebral atherosclerosis Current Visit: Yes Status: Acute Plan to address problem: Risk factor reduction therapy, antiplatelet therapy as clinically indicated, s upportive care. (4) Acute abdominal pain Current Visit: Yes Status: Acute Plan to address problem: CT scan abdomen and pelvis, serial abdominal exam, bowel rest, supportive care. (5) atrial fibrillation rate controlled (6) DVT prophylaxis Current Visit: Yes Status: Acute Plan to address problem: Prophylactic anticoagulation, SCD to bilateral lower extremities while in bed, (7) Advance care planning Current Visit: Yes Status: Acute Plan to address problem: Disease education conducted, patient is full code, care plan discussed, diagnosis discussed, prognosis discussed, patient family knowledges understan ding and agree with care plan, +30 minutes. History Interval history: Patient seen and examined this morning remains confused. On two-point restraints. Hospitalist Physical - Physical exam Narrative exam: VITAL SIGNS: Reviewed. GENERAL: The patient appears normally developed, Vital signs as documented. HEAD: No signs of head trauma. EYES: Pupils are equal. Extraocular motions intact. EARS: Hearing grossly intact. MOUTH: Oropharynx is normal. NECK: No adenopathy, no JVD. CHEST: Chest with clear breath sounds bilaterally. No wheezes, rales, or rhonchi. CARDIAC: Irregularly irregular rate and rhythm. S1 and S2, without murmurs, gallops, or rubs. VASCULAR: No Edema. Peripheral pulses normal and equal in all extremities. ABDOMEN: Soft, non tender and non distended. No rebound or guarding, and no masses palpated. Bowel Sounds normal. MUSCULOSKELETAL: Good range of motion of all major joints. Extremities without clubbing, cyanosis or edema. NEUROLOGIC EXAM: Awake and oriented to person only. No focal sensory or strength deficits. Speech normal. Follows commands. PSYCHIATRIC: Mood anxious SKIN: detail exam as documented in skin assessment - Constitutional Vitals: Temp Pulse Resp BP Pulse Ox 98.1 F 103 H 16 129/63 95 08/06/20 04:38 08/05/20 21:24 08/06/20 04:38 08/06/20 04:38 08/05/20 21:12 General appearance: Present: mild distress, obese HEART Score - HEART Score EKG: Non-specific Age: > 65 Risk factors: > 3 risk factors or hx of atherosclerotic disease Troponin: Troponin T < 0.010 ng/mL (0.00-0.029) 08/05/20 08:07 Troponin: < normal limit Results - Labs CBC & Chem 7: 08/06/20 05:03 08/06/20 05:03 Labs: Laboratory Last Values WBC 9.7 K/mm3 (4.5-11.0) 08/06/20 05:03 RBC 5.28 M/mm3 (3.65-5.03) H 08/06/20 05:03 Hgb 15.6 gm/dl (11.8-15.2) H 08/06/20 05:03 Hct 47.0 % (35.5-45.6) H 08/06/20 05:03 MCV 89 fl (84-94) 08/06/20 05:03 MCH 30 pg (28-32) 08/06/20 05:03 MCHC 33 % (32-34) 08/06/20 05:03 RDW 15.2 % (13.2-15.2) 08/06/20 05:03 Plt Count 221 K/mm3 (140-440) 08/06/20 05:03 Lymph % (Auto) 24.1 % (13.4-35.0) 08/06/20 05:03 [place] % (Auto) 7.5 % (0.0-7.3) H 08/06/20 05:03 Eos % (Auto) 3.4 % (0.0-4.3) 08/06/20 05:03 Baso % (Auto) 0.5 % (0.0-1.8) 08/06/20 05:03 Lymph # (Auto) 2.3 K/mm3 (1.2-5.4) 08/06/20 05:03 [place] # (Auto) 0.7 K/mm3 (0.0-0.8) 08/06/20 05:03 Eos # (Auto) 0.3 K/mm3 (0.0-0.4) 08/06/20 05:03 Baso # (Auto) 0.0 K/mm3 (0.0-0.1) 08/06/20 05:03 Seg Neutrophils % 64.5 % (40.0-70.0) 08/06/20 05:03 Seg Neutrophils # 6.3 K/mm3 (1.8-7.7) 08/06/20 05:03 PT 13.4 Sec. (12.2-14.9) 08/05/20 08:07 INR 1.03 (0.87-1.13) 08/05/20 08:07 APTT 30.3 Sec. (24.2-36.6) 08/05/20 08:07 Sodium 140 mmol/L (137-145) 08/06/20 05:03 Potassium 4.1 mmol/L (3.6-5.0) 08/06/20 05:03 Chloride 105.1 mmol/L (98-107) 08/06/20 05:03 Carbon Dioxide 25 mmol/L (22-30) 08/06/20 05:03 Anion Gap 14 mmol/L 08/06/20 05:03 BUN 12 mg/dL (9-20) 08/06/20 05:03 Creatinine 0.8 mg/dL (0.8-1.3) 08/06/20 05:03 Estimated GFR > 60 ml/min 08/06/20 05:03 BUN/Creatinine Ratio 15 % 08/06/20 05:03 Glucose 82 mg/dL (75-100) 08/06/20 05:03 Lactic Acid 1.40 mmol/L (0.7-2.0) 08/05/20 08:07 Calcium 8.1 mg/dL (8.4-10.2) L 08/06/20 05:03 Total Bilirubin 0.70 mg/dL (0.1-1.2) 08/06/20 05:03 AST 19 units/L (5-40) 08/06/20 05:03 ALT 16 units/L (7-56) 08/06/20 05:03 Alkaline Phosphatase 76 units/L (35-129) 08/06/20 05:03 Total Creatine Kinase 53 units/L (55-170) L 08/05/20 08:07 CK-MB (CK-2) 1.5 ng/mL (0.0-4.0) 08/05/20 08:07 CK-MB (CK-2) Rel Index 2.8 (0-4) 08/05/20 08:07 Troponin T < 0.010 ng/mL (0.00-0.029) 08/05/20 08:07 Total Protein 6.2 g/dL (6.3-8.2) L 08/06/20 05:03 Albumin 3.7 g/dL (3.9-5) L 08/06/20 05:03 Albumin/Globulin Ratio 1.5 % 08/06/20 05:03 Lipase 205 units/L (13-60) H 08/05/20 08:07 Urine Color Yellow (Yellow) 08/05/20 Unknown Urine Turbidity Clear (Clear) 08/05/20 Unknown Urine pH 6.0 (5.0-7.0) 08/05/20 Unknown Ur Specific [place] 1.017 (1.003-1.030) 08/05/20 Unknown Urine Protein <15 mg/dl mg/dL (Negative) 08/05/20 Unknown Urine Glucose (UA) Neg mg/dL (Negative) 08/05/20 Unknown Urine Ketones Neg mg/dL (Negative) 08/05/20 Unknown Urine Blood Neg (Negative) 08/05/20 Unknown Urine Nitrite Neg (Negative) 08/05/20 Unknown Urine Bilirubin Neg (Negative) 08/05/20 Unknown Urine Urobilinogen 2.0 mg/dL (<2.0) 08/05/20 Unknown Ur Leukocyte Esterase Neg (Negative) 08/05/20 Unknown Urine WBC (Auto) 1.0 /HPF (0.0-6.0) 08/05/20 Unknown Urine RBC (Auto) 2.0 /HPF (0.0-6.0) 08/05/20 Unknown Urine Mucus Few /HPF 08/05/20 Unknown Valproic Acid 10.1 ug/mL (50-100) L 08/05/20 08:07 Eng/IV: Voiding Method Incontinent Active Medications - Current Medications Current Medications: Generic Name Dose Route Start Last Admin Trade Name Freq PRN Reason Stop Dose Admin Acetaminophen 650 mg 08/05/20 12:11 Acetaminophen 325 Mg Tab PO Q4H PRN Pain MILD(1-3)/Fever >100.5/RUBIN Albuterol 2.5 mg 08/05/20 12:11 Albuterol 2.5 Mg/3 Ml Nebu IH Q4HRT PRN Shortness Of Breath Atorvastatin Calcium 40 mg 08/05/20 22:00 08/05/20 21:24 Atorvastatin 40 Mg Tab PO 40 mg QHS TROY Administration Divalproex Sodium 125 mg 08/06/20 10:00 Divalproex Sprinkle 125 Mg Cap PO DAILY TROY Enoxaparin Sodium 40 mg 08/06/20 10:00 08/06/20 11:08 Enoxaparin 40 Mg/0.4 Ml Inj SUB-Q 40 mg QDAY@1000 TROY Administration Furosemide 20 mg 08/06/20 06:00 08/06/20 05:11 Furosemide 20 Mg Tab PO 20 mg DAILY@0600 TROY Administration Sodium Chloride 1,000 mls @ 75 mls/hr 08/05/20 12:15 08/06/20 05:19 Nacl 0.9% 1000 Ml IV 75 mls/hr DIRECT TROY Administration Memantine 10 mg 08/05/20 22:00 08/05/20 21:29 Memantine 10 Mg Tab PO 10 mg Q12HR TROY Administration Metoprolol Tartrate 50 mg 08/05/20 22:00 08/05/20 21:24 Metoprolol Tartrate 50 Mg Tab PO 50 mg BID TROY Administration Morphine Sulfate 2 mg 08/05/20 12:11 08/05/20 17:17 Morphine 2 Mg/1 Ml Inj IV 2 mg Q4H PRN Administration Pain, Moderate (4-6) Ondansetron HCl 4 mg 08/05/20 12:11 Ondansetron 4 Mg/2 Ml Inj IV Q8H PRN Nausea And Vomiting Sodium Chloride 10 ml 08/05/20 22:00 08/05/20 21:25 Sodium Chloride 0.9% 10 Ml Flush Syringe IV 10 ml BID TROY Administration Sodium Chloride 10 ml 08/05/20 12:11 Sodium Chloride 0.9% 10 Ml Flush Syringe IV PRN PRN LINE FLUSH
--- NOTE | 2020-08-06 12:35 | Consultation ---
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 Patient has diminished cognition and is unable to provide detailed history. Patient history provided by EMS staff, ED staff, As per the patient aw akened at approximately 0430 hrs. appearing panicked and scared and was found to have pain in his chest. EMS was notified and upon arrival the patient was found to be in distress and subsequently transported to [facility] for further care and evaluation of the aforementioned symptoms. The patient was seen and evaluated in the emergency department. All lab and imaging studies reviewed. Upon further exam the patient localized and validated that his epigastric area was the source of his pain. Patient found to have symptoms consistent with acute pancreatitis. Patient admitted to medical floor and treated with supportive care. Patient denies fever, chills, palpitation, productive cough, skin rash, recent ill contacts, ingestion of food/water from new or different sources, or known exposure to COVID-19. Prior admission on 02/25/2020 reviewed. All medication listed at time of admission has been reconciled. Advanced care planning conducted in ED. Past History Past Medical History: atrial fib, seizures, stroke Past Surgical History: Other (Prostatectomy) Social history: , lives with family. denies: smoking, alcohol abuse Family history: diabetes, hypertension Medications and Allergies Allergies Allergy/AdvReac Type Severity Reaction Status Date / Time clonidine AdvReac Unknown Verified 02/25/20 16:01 Home Medications Medication Instructions Recorded Confirmed Last Taken Type Aspirin 325 mg PO QDAY 02/25/20 02/25/20 Unknown History AtorvaSTATin [Lipitor] 40 mg PO QHS 02/25/20 02/25/20 Unknown History Divalproex Sodium [Depakote 125 mg PO DAILY 02/25/20 02/25/20 Unknown History Sprinkle] Furosemide 20 mg PO DAILY 02/25/20 02/25/20 Unknown History Memantine 10 mg PO BID 02/25/20 02/25/20 Unknown History Metoprolol 50 mg PO BID 02/25/20 02/25/20 Unknown History Review of Systems ROS unobtainable: due to mental status Past History Past Medical History: atrial fib, seizures, stroke Past Surgical History: Other (Prostatectomy) Social history: , lives with family. denies: smoking, alcohol abuse Family history: diabetes, hypertension Medications and Allergies Allergies Allergy/AdvReac Type Severity Reaction Status Date / Time clonidine AdvReac Unknown Verified 02/25/20 16:01 Home Medications Medication Instructions Recorded Confirmed Last Taken Type Aspirin 325 mg PO QDAY 02/25/20 08/05/20 08/05/20 12:00 History AtorvaSTATin [Lipitor] 40 mg PO QHS 02/25/20 08/05/20 08/04/20 20:00 History Divalproex Sodium [Depakote 125 mg PO DAILY 02/25/20 08/05/20 08/04/20 20:00 History Sprinkle] Furosemide 20 mg PO DAILY 02/25/20 08/05/20 08/04/20 08:00 History Memantine 10 mg PO BID 02/25/20 08/05/20 08/04/20 20:00 History Metoprolol 50 mg PO BID 02/25/20 08/05/20 08/04/20 20:00 History Active Meds: Active Medications Acetaminophen (Acetaminophen 325 Mg Tab) 650 mg PO Q4H PRN PRN Reason: Pain MILD(1-3)/Fever >100.5/RUBIN Albuterol (Albuterol 2.5 Mg/3 Ml Nebu) 2.5 mg IH Q4HRT PRN PRN Reason: Shortness Of Breath Atorvastatin Calcium (Atorvastatin 40 Mg Tab) 40 mg PO QHS [facility] Last Admin: 08/05/20 21:24 Dose: 40 mg Documented by: Divalproex Sodium (Divalproex Sprinkle 125 Mg Cap) 125 mg PO DAILY [facility] Enoxaparin Sodium (Enoxaparin 40 Mg/0.4 Ml Inj) 40 mg SUB-Q QDAY@1000 [facility] Last Admin: 08/06/20 11:08 Dose: 40 mg Documented by: Furosemide (Furosemide 20 Mg Tab) 20 mg PO DAILY@0600 [facility] Last Admin: 08/06/20 05:11 Dose: 20 mg Documented by: Sodium Chloride (Nacl 0.9% 1000 Ml) 1,000 mls @ 75 mls/hr IV DIRECT [facility] Last Admin: 08/06/20 05:19 Dose: 75 mls/hr Documented by: Memantine (Memantine 10 Mg Tab) 10 mg PO Q12HR [facility] Last Admin: 08/05/20 21:29 Dose: 10 mg Documented by: Metoprolol Tartrate (Metoprolol Tartrate 50 Mg Tab) 50 mg PO BID [facility] Last Admin: 08/05/20 21:24 Dose: 50 mg Documented by: Morphine Sulfate (Morphine 2 Mg/1 Ml Inj) 2 mg IV Q4H PRN PRN Reason: Pain, Moderate (4-6) Last Admin: 08/05/20 17:17 Dose: 2 mg Documented by: Ondansetron HCl (Ondansetron 4 Mg/2 Ml Inj) 4 mg IV Q8H PRN PRN Reason: Nausea And Vomiting Sodium Chloride (Sodium Chloride 0.9% 10 Ml Flush Syringe) 10 ml IV BID [facility] Last Admin: 08/05/20 21:25 Dose: 10 ml Documented by: Sodium Chloride (Sodium Chloride 0.9% 10 Ml Flush Syringe) 10 ml IV PRN PRN PRN Reason: LINE FLUSH Physical Examination - Vital Signs Vital Signs: Vital Signs Pulse Resp BP Pulse Ox 79 15 134/74 97 08/05/20 06:22 08/05/20 06:22 08/05/20 06:22 08/05/20 06:22 - Constitutional General appearance: comfortable, other (strained he is with no clear speech output with possible aphasia alert follow simple command at time ) - EENT EENT: Present: PERRL, mucous membranes moist - Respiratory Respiratory: Present: chest non-tender, lungs clear, crackles - Cardiovascular Cardiovascular: Present: other (irregular heart rate) Extremities: Present: no peripheral edema bilatateraly, no clubbing, cyanosis - Gastrointestinal Gastrointestinal: Present: normoactive bowel sounds - Integumentary Integumentary: Present: normal - Neurologic Cranial nerve examination: PERRL, EOMI, other (possible right facial droop noted on exam difficult to assess visual field ) Speech examination: other (no significant speech out put he understand only simple command squeeze hand at time ) Detailed motor examination: other (motor 4/5 bilteral no clear weakness he is restrained planter is down going ) Results - Laboratory Findings CBC and BMP: 08/06/20 05:03 08/06/20 05:03 Abnormal Lab Findings: Abnormal Labs 08/05/20 08/05/20 08/05/20 08:07 08:07 08:07 RBC 5.38 H Hgb 15.9 H Hct 47.7 H [place] % (Auto) 7.4 H Eos # (Auto) 0.5 H Calcium 8.3 L Total Creatine Kinase 53 L Total Protein Albumin 3.4 L Lipase 205 H Valproic Acid 10.1 L 08/06/20 08/06/20 05:03 05:03 RBC 5.28 H Hgb 15.6 H Hct 47.0 H [place] % (Auto) 7.5 H Eos # (Auto) Calcium 8.1 L Total Creatine Kinase Total Protein 6.2 L Albumin 3.7 L Lipase Valproic Acid Assessment and Plan Assessment and Plan 80 YO Male with Seizure Disorder, Vascular Dementia, Cerebral Atherosclerosis, 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 Patient has diminished cognition and is unable to provide detailed history. Patient history provided by EMS staff, ED staff, as well as patient who is available to discuss patient symptoms via telephone. As per the patient awakened at approximately 0430 hrs. appearing panicked and scared -neurology asked to see # Cerebral atherosclerosis/CVA can not be excluded -he is aphasis , right facial droop ? remote -Hx of underlying AF on ASA -Suggest MRI brain -Echo -Lipid profil -CTA brain and neck -Maintain ASA and lipitor 40 mg -Lipid profil #Underlying advanced dementia - mantain amantedine -B12,TSH -ST to see # hx of seizure -As per hx -he is on Valproic acid 125 mg bid -valp. level#10 -increase valproic to 250 mg tid --can give IV -EEG -Seizure precaution # Acute pancreatitis ? abdominal pain -CT scan abdomen and pelvis, - lipase level, serial abdominal exam, -bowel rest, -IV fluid resuscitation therapy, -pain control, - supportive care. # DVT prophylaxis -Prophylactic anticoagulation, -SCD to bilateral lower extremities while in bed, # Advance care planning -Disease education conducted, -patient is full code, plan 1-mri brain 2-eeg 3-valproic acid 250 mg tid iv 4-cta brain and neck 5- echo 6- lipitor 40 mg 7- asa 81 mg 8- Fasting lipid profil 9- repeat valproic acid level in sunday 10-Pt/ST evaluate
[2020-08-06] MEDS: METOPROLOL TARTRATE 50 MG TAB PO SCH ×2 (12:46→22:44)
[2020-08-06] MEDS: MEMANTINE 10 MG TAB PO SCH ×2 (12:46→22:44)
--- NOTE | 2020-08-06 13:31 | Electrocardiograph Report ---
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
--- NOTE | 2020-08-06 13:31 | Consultation ---
History of Present Illness Consult date: 08/06/20 Requesting physician: BALDO BETANCOURT Consult reason: atrial fibrillation History of present illness: Pt is an 80-year-old male with a hx of dementia who presented for evaluation of epigastric pain. Upon assessment today, pt is very pleasant and appears comfortable. He is able to say "no" and shake his head when asked if he is in any pain. Cardiology has been consulted for eval and mgmt of atrial fibrillation. Pt has a hx of permanent AF/Flutter and is not on oral anticoagulation as an outpatient due to dementia and high fall risk. He is followed by Dr. Wei Yusuf @ [facility]. Recent echo performed 09/02/2019 revealed EF 50-55% and no significant valvular abnormalities. Past History Past Medical History: atrial fib, hypertension, hyperlipidemia, stroke, other (prostate CA) Past Surgical History: Other (prostatectomy). denies: valve replacement, CABG, PTCA Social history: , lives with family. denies: smoking, alcohol abuse Family history: diabetes, hypertension Medications and Allergies Allergies Allergy/AdvReac Type Severity Reaction Status Date / Time clonidine AdvReac Unknown Verified 02/25/20 16:01 Home Medications Medication Instructions Recorded Confirmed Last Taken Type Aspirin 325 mg PO QDAY 02/25/20 08/05/20 08/05/20 12:00 History AtorvaSTATin [Lipitor] 40 mg PO QHS 02/25/20 08/05/20 08/04/20 20:00 History Divalproex Sodium [Depakote 125 mg PO DAILY 02/25/20 08/05/20 08/04/20 20:00 History Sprinkle] Furosemide 20 mg PO DAILY 02/25/20 08/05/20 08/04/20 08:00 History Memantine 10 mg PO BID 02/25/20 08/05/20 08/04/20 20:00 History Metoprolol 50 mg PO BID 02/25/20 08/05/20 08/04/20 20:00 History Active Meds: Active Medications Acetaminophen (Acetaminophen 325 Mg Tab) 650 mg PO Q4H PRN PRN Reason: Pain MILD(1-3)/Fever >100.5/RUBIN Albuterol (Albuterol 2.5 Mg/3 Ml Nebu) 2.5 mg IH Q4HRT PRN PRN Reason: Shortness Of Breath Atorvastatin Calcium (Atorvastatin 40 Mg Tab) 40 mg PO QHS [facility] Last Admin: 08/05/20 21:24 Dose: 40 mg Documented by: Divalproex Sodium (Divalproex Sprinkle 125 Mg Cap) 125 mg PO DAILY [facility] Last Admin: 08/06/20 12:46 Dose: Not Given Documented by: Enoxaparin Sodium (Enoxaparin 40 Mg/0.4 Ml Inj) 40 mg SUB-Q QDAY@1000 [facility] Last Admin: 08/06/20 11:08 Dose: 40 mg Documented by: Furosemide (Furosemide 20 Mg Tab) 20 mg PO DAILY@0600 [facility] Last Admin: 08/06/20 05:11 Dose: 20 mg Documented by: Sodium Chloride (Nacl 0.9% 1000 Ml) 1,000 mls @ 75 mls/hr IV DIRECT [facility] Last Admin: 08/06/20 05:19 Dose: 75 mls/hr Documented by: Memantine (Memantine 10 Mg Tab) 10 mg PO Q12HR [facility] Last Admin: 08/06/20 12:46 Dose: Not Given Documented by: Metoprolol Tartrate (Metoprolol Tartrate 50 Mg Tab) 50 mg PO BID [facility] Last Admin: 08/06/20 12:46 Dose: Not Given Documented by: Morphine Sulfate (Morphine 2 Mg/1 Ml Inj) 2 mg IV Q4H PRN PRN Reason: Pain, Moderate (4-6) Last Admin: 08/06/20 13:12 Dose: 2 mg Documented by: Ondansetron HCl (Ondansetron 4 Mg/2 Ml Inj) 4 mg IV Q8H PRN PRN Reason: Nausea And Vomiting Sodium Chloride (Sodium Chloride 0.9% 10 Ml Flush Syringe) 10 ml IV BID [facility] Last Admin: 08/06/20 13:14 Dose: 10 ml Documented by: Sodium Chloride (Sodium Chloride 0.9% 10 Ml Flush Syringe) 10 ml IV PRN PRN PRN Reason: LINE FLUSH Review of Systems ROS unobtainable: due to mental status Cardiovascular: no chest pain Physical Examination Last Vital Signs Temp 98.1 F 08/06/20 04:38 Pulse 103 H 08/05/20 21:24 Resp 16 08/06/20 04:38 BP 129/63 08/06/20 04:38 Pulse Ox 95 08/05/20 21:12 General appearance: no acute distress HEENT: Positive: EOMI, Normocephaly, Mucus Membranes Moist Neck: Positive: neck supple, trachea midline. Negative: JVD/HJR Cardiac: Positive: irregularly irregular, S1/S2. Negative: Audible Murmur Lungs: Positive: clear to auscultation (bilaterally) Neuro: Positive: Grossly Intact Abdomen: Positive: Soft. Negative: Tender Skin: Negative: Rash Musculoskeletal: No Fluid Collection, No Pain Extremities: Present: lower extr. pulses. Absent: edema Results 08/06/20 05:03 08/06/20 05:03 Cardiac Enzymes 08/06/20 Range/Units 05:03 AST 19 (5-40) units/L CBC 08/06/20 Range/Units 05:03 WBC 9.7 (4.5-11.0) K/mm3 RBC 5.28 H (3.65-5.03) M/mm3 Hgb 15.6 H (11.8-15.2) gm/dl Hct 47.0 H (35.5-45.6) % Plt Count 221 (140-440) K/mm3 Lymph # (Auto) 2.3 (1.2-5.4) K/mm3 [place] # (Auto) 0.7 (0.0-0.8) K/mm3 Eos # (Auto) 0.3 (0.0-0.4) K/mm3 Baso # (Auto) 0.0 (0.0-0.1) K/mm3 Comprehensive Metabolic Panel 08/06/20 Range/Units 05:03 Sodium 140 (137-145) mmol/L Potassium 4.1 (3.6-5.0) mmol/L Chloride 105.1 (98-107) mmol/L Carbon Dioxide 25 (22-30) mmol/L BUN 12 (9-20) mg/dL Creatinine 0.8 (0.8-1.3) mg/dL Glucose 82 (75-100) mg/dL Calcium 8.1 L (8.4-10.2) mg/dL AST 19 (5-40) units/L ALT 16 (7-56) units/L Alkaline Phosphatase 76 (35-129) units/L Total Protein 6.2 L (6.3-8.2) g/dL Albumin 3.7 L (3.9-5) g/dL - Imaging and Cardiology Echo: report reviewed (09/02/2019 - EF 50-55% and no significant valvular abnormalities) EKG: report reviewed, image reviewed - EKG Interpretation EKG: no acute changes EKG interpretations - Telemetry EKG Rhythm: Atrial Fibrillation - EKG Supraventricular dysrhythmia: atrial fibrillation AV and intraventricular conduction: left bundle branch block Assessment and Plan Currently rate controlled with PO Lopressor 50mg BID. Would not recommend initiation of oral anticoagulation in the setting of dementia and high fall risk as previously outlined. Otherwise stable cardiac status. Continue present regimen. Recommend follow-up with Primary [facility] within 1-2 weeks (Paramjit @ [facility]). Pt seen in conjunction with Dr. Abdi, who agrees with the assessment and plan of care. - Patient Problems (1) Acute pancreatitis Current Visit: Yes Status: Suspected Qualifiers: Acute pancreatitis complication: unspecified (2) Chronic atrial fibrillation Current Visit: Yes Status: Chronic (3) HTN (hypertension) Current Visit: Yes Status: Chronic Qualifiers: Hypertension type: essential hypertension Qualified Code(s): I10 - Essential (primary) hypertension (4) HLD (hyperlipidemia) Current Visit: Yes Status: Chronic Qualifiers: Hyperlipidemia type: mixed hyperlipidemia Qualified Code(s): E78.2 - Mixed hyperlipidemia (5) Vascular dementia Current Visit: Yes Status: Chronic Qualifiers: Dementia behavioral disturbance: with behavioral disturbance Qualified C ode(s): F01.51 - Vascular dementia with behavioral disturbance
--- NOTE | 2020-08-06 17:00 | Magnetic Resonance Report ---
MRI BRAIN WITHOUT CONTRAST INDICATION / CLINICAL INFORMATION: CVA.AF. TECHNIQUE: Multiplanar, multisequence MR images of the brain were obtained. COMPARISON: None available. FINDINGS: BRAIN / INTRACRANIAL CONTENTS: No acute ischemia, acute hemorrhage, mass effect, midline shift, or hy drocephalus. Moderate global brain atrophy. No significant demyelination. No chronic infarct. CRANIOCERVICAL JUNCTION: No significant abnormality. VASCULAR FLOW-VOIDS: No significant abnormality. ORBITS: No significant abnormality of visualized orbits. SINUSES / MASTOIDS: No significant abnormality of visualized sinuses and mastoid air cells. ADDITIONAL FINDINGS: None. IMPRESSION: 1. No acute intracranial abnormality. 2. Moderate global brain atrophy. Signer Name: Jhony Sofia MD Signed: 08/06/2020 4:55 PM Workstation Name: [id number]
--- NOTE | 2020-08-06 19:37 | Cat Scan Report ---
CTA HEAD AND NECK WITH CONTRAST HISTORY: CVA COMPARISON: Brain MRI done earlier on 08/06/2020 TECHNIQUE: All CT scans at this location are performed using CT dose reduction for ALARA by means of automated exposure control.. 3-D/MIP reformats postprocessed. Percentage stenosis is determined by d irect quantitative measurements of diseased internal carotid artery diameter compared with normal dis kenneth internal carotid artery reference segments or by criteria similar to NASCET where applicable. CONTRAST: 100 ml of 350 FINDINGS: CT HEAD: BRAIN / INTRACRANIAL CONTENTS: No acute hemorrhage, mass effect, midline shift, or hydrocephalus. No appreciable acute large territorial or lacunar infarct. ORBITS: No significant abnormality of visualized orbits. SINUSES / MASTOIDS: No significant abnormality of visualized sinuses and mastoid air cells. CTA HEAD: Intracranial vertebral arteries: The left vertebral artery is dominant. Basilar artery: No significant abnormality. Posterior cerebral arteries: There is developmental origin of the right posterior cerebral ronald ry. Intracranial internal carotid arteries: There is mild atherosclerotic plaque in both carotid siphons without flow-limiting stenosis. Anterior cerebral arteries: No significant abnormality. Middle cerebral arteries: No significant abnormality. Dural venous sinuses:Not optimally opacified. No significant abnormality. CTA NECK: Aortic arch: Mild atherosclerotic plaque. 4 vessel branching pattern of the aortic arch with left tub al artery arising adjacent to the left subclavian artery origin. Cervical vertebral arteries: There is atherosclerotic plaque in the ostium of both vertebral arteries without appreciable flow limiting stenosis. The left vertebral artery is developmentally dominant. Common carotid arteries: No significant abnormality. Cervical internal carotid arteries: Atherosclerotic plaque in both carotid bulbs and proximal cervica l internal carotid arteries resulting in about 20% stenosis bilaterally. No occlusion or evidence of dissection. Additional findings: Calcified granuloma in the right lobe of the lungs. Moderate degenerative disc d isease at C5-6 and cervical spine. IMPRESSION: 1. No flow-limiting stenosis or large vessel occlusion in the cervical or intracranial arteries. Signer Name: Jhony Sofia MD Signed: 08/06/2020 7:32 PM Workstation Name: [id number]
[2020-08-06] MEDS: DIVALPROEX SPRINKLE 125 MG CAP PO SCH ×2 (19:50→22:43)
[2020-08-07] MEDS: SODIUM CHLORIDE 0.9% 1000 ML 1,000 ML IV SCH (03:09)
[2020-08-07 04:52] VITALS: BP 130/78
[2020-08-07] MEDS: DIVALPROEX SPRINKLE 125 MG CAP PO SCH (05:52)
[2020-08-07] MEDS: FUROSEMIDE 20 MG TAB PO SCH (05:52)
[2020-08-07 06:16] LABS: Hematocrit 44.2 % (35.5-45.6); Hemoglobin 14.8 gm/dl (11.8-15.2); Mean Corpuscular HGB Conc 34 % (32-34); Mean Corpuscular Volume 89 fl (84-94); Platelet Count 209 K/mm3 (140-440); Red Blood Count 4.96 M/mm3 (3.65-5.03); Red Cell Distribution Width 15.2 % (13.2-15.2)
[2020-08-07 06:37] LABS: Alanine Aminotransferase 17 units/L (7-56); Albumin 3.3 g/dL (3.9-5); Blood Urea Nitrogen 12 mg/dL (9-20); Calcium 7.7 mg/dL (8.4-10.2); Hemolysis Index 15
[2020-08-07 06:56] LABS: BUN/Creatinine Ratio 17
[2020-08-07] MEDS: MEMANTINE 10 MG TAB PO SCH (09:06)
[2020-08-07] MEDS: METOPROLOL TARTRATE 50 MG TAB PO SCH (09:06)
[2020-08-07] MEDS: ENOXAPARIN 40 MG/0.4 ML INJ SUB-Q SCH (09:06)
--- NOTE | 2020-08-07 09:42 | Progress Note ---
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 Patient has diminished cognition and is unable to provide detailed history. Patient history provided by EMS staff, ED staff, as well as patient who is available to discuss patient symptoms via telephone. As per the patient awakened at approximately 0430 hrs. appearing panicked and scared and was found to have pain in his chest. EMS was notified and upon arrival the patient was found to be in distress and subsequently transported to [facility] for further care and evaluation of the aforementioned symptoms. The patient was seen and evaluated in the emergency department. All lab and imaging studies reviewed. Upon further exam the patient localized and validated that his epigastric area was the source of his pain. Patient found to have symptoms consistent with acute pancreatitis. Patient admitted to medical floor and treated with supportive care. Patient wi fe denies fever, chills, palpitation, productive cough, skin rash, recent ill contacts, ingestion of food/water from new or different sources, or known exposure to COVID-19. Prior admission on 02/25/2020 reviewed. 08/06: This morning patient evaluated and reviewed still confused I reviewed his previous hospitalization did not see that he had a neurological evaluation. He also was noted to be in A. fib although rate controlled will obtain cardiology consultation considering that he initially presented with chest pain. While he has an elevated lipase and it may have been that he got some pain medication prior to my exam there is no physical exam or imaging exam corresponded with acute pancreatitis. I have reached out to the and left her message. We will continue current management and anticipate discharge in 24 to 48 hours if patient remains stable, will obtain speech swallow and start on clear liquids and advance as tolerated. 80 YO Male with Seizure Disorder, Vascular Dementia, Cerebral Atherosclerosis, 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 Patient has diminished cognition and is unable to provide detailed history. Patient history provided by EMS staff, ED staff, as well as patient who is available to discuss patient symptoms via telephone. As per the patient awakened at approximately 0430 hrs. appearing panicked and scared -neurology asked to see # Cerebral atherosclerosis/CVA can not be excluded -he is aphasis , right facial droop ? remote -Hx of underlying AF on ASA -Suggest MRI brain -Echo -Lipid profil -CTA brain and neck -Maintain ASA and lipitor 40 mg -Lipid profil #Underlying advanced dementia - mantain amantedine -B12,TSH -ST to see # hx of seizure -As per hx -he is on Valproic acid 125 mg bid -valp. level#10 -increase valproic to 250 mg tid --can give IV -EEG -Seizure precaution # Acute pancreatitis ? abdominal pain -CT scan abdomen and pelvis, - lipase level, serial abdominal exam, -bowel rest, -IV fluid resuscitation therapy, -pain control, - supportive care. # DVT prophylaxis -Prophylactic anticoagulation, -SCD to bilateral lower extremities while in bed, # Advance care planning -Disease education conducted, -patient is full code, plan 1-mri brain 2-eeg 3-valproic acid 250 mg tid iv 4-cta brain and neck 5- echo 6- lipitor 40 mg 7- asa 81 mg 8- Fasting lipid profil 9- repeat valproic acid level in sunday am 10-Pt/ST evaluate (1) Acute pancreatitis Current Visit: Yes Status: Acute Qualifiers: Acute pancreatitis complication: unspecified Plan to address problem: CT scan abdomen and pelvis, lipase level, serial abdominal exam, bowel rest, IV fluid resuscitation therapy, pain control, supportive care. (2) Vascular dementia Current Visit: Yes Status: Acute Qualifiers: Dementia behavioral disturbance: with behavioral disturbance Qualified Code(s): F01.51 - Vascular dementia with behavioral disturbance Plan to address problem: Verbal prompting, verbal redirection, benzodiazepine therapy as clinically indicated, supportive care. (3) Cerebral atherosclerosis Current Visit: Yes Status: Acute Plan to address problem: Risk factor reduction therapy, antiplatelet therapy as clinically indicated, supportive care. (4) Acute abdominal pain Current Visit: Yes Status: Acute Plan to address problem: CT scan abdomen and pelvis, serial abdominal exam, bowel rest, supportive care. (5) atrial fibrillation rate controlled (6) DVT prophylaxis Current Visit: Yes Status: Acute Plan to address problem: Prophylactic anticoagulation, SCD to bilateral lower extremities while in bed, (7) Advance care planning Current Visit: Yes Status: Acute Plan to address problem: Disease education conducted, patient is full code, care plan discussed, diagnosis discussed, prognosis discussed, patient family knowledges understanding and agree with care plan, +30 minutes. History Interval history: Patient seen and examined this morning remains confused. No new complaints. On two-point restraints. Hospitalist Physical - Physical exam Narrative exam: VITAL SIGNS: Reviewed. GENERAL: The patient appears normally developed, Vital signs as documented. HEAD: No signs of head trauma. EYES: Pupils are equal. Extraocular motions intact. EARS: Hearing grossly intact. MOUTH: Oropharynx is normal. NECK: No adenopathy, no JVD. CHEST: Chest with clear breath sounds bilaterally. No wheezes, rales, or rhonchi. CARDIAC: Irregularly irregular rate and rhythm. S1 and S2, without murmurs, gallops, or rubs. VASCULAR: No Edema. Peripheral pulses normal and equal in all extremities. ABDOMEN: Soft, non tender and non distended. No rebound or guarding, and no masses palpated. Bowel Sounds normal. MUSCULOSKELETAL: Good range of motion of all major joints. Extremities without clubbing, cyanosis or edema. NEUROLOGIC EXAM: Awake and oriented to person only. No focal sensory or strength deficits. Speech normal. Follows commands. PSYCHIATRIC: Mood anxious SKIN: detail exam as documented in skin assessment - Constitutional Vitals: Temp Pulse Resp BP Pulse Ox 97.8 F 99 H 16 130/78 95 08/07/20 04:02 08/07/20 04:02 08/07/20 04:02 08/07/20 04:02 08/07/20 04:02 General appearance: Present: no acute distress HEART Score - HEART Score EKG: Non-specific Age: > 65 Risk factors: > 3 risk factors or hx of atherosclerotic disease Troponin: Troponin T < 0.010 ng/mL (0.00-0.029) 08/05/20 08:07 Troponin: < normal limit Results - Labs CBC & Chem 7: 08/07/20 05:23 08/07/20 05:23 Labs: Laboratory Last Values WBC 9.4 K/mm3 (4.5-11.0) 08/07/20 05:23 RBC 4.96 M/mm3 (3.65-5.03) 08/07/20 05:23 Hgb 14.8 gm/dl (11.8-15.2) 08/07/20 05:23 Hct 44.2 % (35.5-45.6) 08/07/20 05:23 MCV 89 fl (84-94) 08/07/20 05:23 MCH 30 pg (28-32) 08/07/20 05:23 MCHC 34 % (32-34) 08/07/20 05:23 RDW 15.2 % (13.2-15.2) 08/07/20 05:23 Plt Count 209 K/mm3 (140-440) 08/07/20 05:23 Lymph % (Auto) 24.1 % (13.4-35.0) 08/06/20 05:03 [place] % (Auto) 7.5 % (0.0-7.3) H 08/06/20 05:03 Eos % (Auto) 3.4 % (0.0-4.3) 08/06/20 05:03 Baso % (Auto) 0.5 % (0.0-1.8) 08/06/20 05:03 Lymph # (Auto) 2.3 K/mm3 (1.2-5.4) 08/06/20 05:03 [place] # (Auto) 0.7 K/mm3 (0.0-0.8) 08/06/20 05:03 Eos # (Auto) 0.3 K/mm3 (0.0-0.4) 08/06/20 05:03 Baso # (Auto) 0.0 K/mm3 (0.0-0.1) 08/06/20 05:03 Seg Neutrophils % 64.5 % (40.0-70.0) 08/06/20 05:03 Seg Neutrophils # 6.3 K/mm3 (1.8-7.7) 08/06/20 05:03 PT 13.4 Sec. (12.2-14.9) 08/05/20 08:07 INR 1.03 (0.87-1.13) 08/05/20 08:07 APTT 30.3 Sec. (24.2-36.6) 08/05/20 08:07 Sodium 134 mmol/L (137-145) L 08/07/20 05:23 Potassium 4.0 mmol/L (3.6-5.0) 08/07/20 05:23 Chloride 103.5 mmol/L (98-107) 08/07/20 05:23 Carbon Dioxide 20 mmol/L (22-30) L 08/07/20 05:23 Anion Gap 15 mmol/L 08/07/20 05:23 BUN 12 mg/dL (9-20) 08/07/20 05:23 Creatinine 0.7 mg/dL (0.8-1.3) L 08/07/20 05:23 Estimated GFR > 60 ml/min 08/07/20 05:23 BUN/Creatinine Ratio 17 % 08/07/20 05:23 Glucose 76 mg/dL (75-100) 08/07/20 05:23 Lactic Acid 1.40 mmol/L (0.7-2.0) 08/05/20 08:07 Calcium 7.7 mg/dL (8.4-10.2) L 08/07/20 05:23 Total Bilirubin 0.70 mg/dL (0.1-1.2) 08/07/20 05:23 AST 22 units/L (5-40) 08/07/20 05:23 ALT 17 units/L (7-56) 08/07/20 05:23 Alkaline Phosphatase 70 units/L (35-129) 08/07/20 05:23 Total Creatine Kinase 53 units/L (55-170) L 08/05/20 08:07 CK-MB (CK-2) 1.5 ng/mL (0.0-4.0) 08/05/20 08:07 CK-MB (CK-2) Rel Index 2.8 (0-4) 08/05/20 08:07 Troponin T < 0.010 ng/mL (0.00-0.029) 08/05/20 08:07 Total Protein 6.1 g/dL (6.3-8.2) L 08/07/20 05:23 Albumin 3.3 g/dL (3.9-5) L 08/07/20 05:23 Albumin/Globulin Ratio 1.2 % 08/07/20 05:23 Lipase 205 units/L (13-60) H 08/05/20 08:07 Urine Color Yellow (Yellow) 08/05/20 Unknown Urine Turbidity Clear (Clear) 08/05/20 Unknown Urine pH 6.0 (5.0-7.0) 08/05/20 Unknown Ur Specific [place] 1.017 (1.003-1.030) 08/05/20 Unknown Urine Protein <15 mg/dl mg/dL (Negative) 08/05/20 Unknown Urine Glucose (UA) Neg mg/dL (Negative) 08/05/20 Unknown Urine Ketones Neg mg/dL (Negative) 08/05/20 Unknown Urine Blood Neg (Negative) 08/05/20 Unknown Urine Nitrite Neg (Negative) 08/05/20 Unknown Urine Bilirubin Neg (Negative) 08/05/20 Unknown Urine Urobilinogen 2.0 mg/dL (<2.0) 08/05/20 Unknown Ur Leukocyte Esterase Neg (Negative) 08/05/20 Unknown Urine WBC (Auto) 1.0 /HPF (0.0-6.0) 08/05/20 Unknown Urine RBC (Auto) 2.0 /HPF (0.0-6.0) 08/05/20 Unknown Urine Mucus Few /HPF 08/05/20 Unknown Valproic Acid 10.1 ug/mL (50-100) L 08/05/20 08:07 Eng/IV: Voiding Method Condom Catheter Active Medications - Current Medications Current Medications: Generic Name Dose Route Start Last Admin Trade Name Freq PRN Reason Stop Dose Admin Acetaminophen 650 mg 08/05/20 12:11 Acetaminophen 325 Mg Tab PO Q4H PRN Pain MILD(1-3)/Fever >100.5/RUBIN Albuterol 2.5 mg 08/05/20 12:11 Albuterol 2.5 Mg/3 Ml Nebu IH Q4HRT PRN Shortness Of Breath Atorvastatin Calcium 40 mg 08/05/20 22:00 08/06/20 22:44 Atorvastatin 40 Mg Tab PO 40 mg QHS [facility] Administration Divalproex Sodium 250 mg 08/06/20 15:00 08/07/20 05:52 Divalproex Sprinkle 125 Mg Cap PO 250 mg Q8HR [facility] Administration Enoxaparin Sodium 40 mg 08/06/20 10:00 08/07/20 09:06 Enoxaparin 40 Mg/0.4 Ml Inj SUB-Q 40 mg QDAY@1000 [facility] Administration Furosemide 20 mg 08/06/20 06:00 08/07/20 05:52 Furosemide 20 Mg Tab PO 20 mg DAILY@0600 [facility] Administration Sodium Chloride 1,000 mls @ 75 mls/hr 08/05/20 12:15 08/07/20 03:09 Nacl 0.9% 1000 Ml IV 75 mls/hr DIRECT [facility] Administration Memantine 10 mg 05/27/21 22:00 08/07/20 09:06 Memantine 10 Mg Tab PO 10 mg Q12HR [facility] Administration Metoprolol Tartrate 50 mg 08/05/20 22:00 08/07/20 09:06 Metoprolol Tartrate 50 Mg Tab PO 50 mg BID [facility] Administration Morphine Sulfate 2 mg 08/05/20 12:11 08/06/20 13:12 Morphine 2 Mg/1 Ml Inj IV 2 mg Q4H PRN Administration Pain, Moderate (4-6) Ondansetron HCl 4 mg 08/05/20 12:11 Ondansetron 4 Mg/2 Ml Inj IV Q8H PRN Nausea And Vomiting Sodium Chloride 10 ml 08/05/20 22:00 08/07/20 09:06 Sodium Chloride 0.9% 10 Ml Flush Syringe IV 10 ml BID [facility] Administration Sodium Chloride 10 ml 08/05/20 12:11 Sodium Chloride 0.9% 10 Ml Flush Syringe IV PRN PRN LINE FLUSH
--- NOTE | 2020-08-07 09:51 | Discharge Summary ---
Providers - Providers Date of Admission: 08/05/20 12:11 Attending physician: BALDO BETANCOURT MD 08/06/20 11:01 Speech Therapy Evaluation and Treat [CONS] Stat Reason For Exam: difficulty swallowing 08/06/20 12:18 Consult to Physician [CONS] Routine Comment: Consulting Provider: JUVENTINO GREEN Physician Instructions: Reason For Exam: AFIB WITH RVR 08/06/20 12:19 Consult to Physician [CONS] Routine Comment: Consulting Provider: MACK BAUM Physician Instructions: Reason For Exam: AMS Primary care physician: [employer] Hospitalization Reason for admission: pain Condition: Stable Hospital course: 80 YO Male with Seizure Disorder, Vascular Dementia, Cerebral Atherosclerosis, 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 Patient has diminished cognition and is unable to provide detailed history. Patient hist ory provided by EMS staff, ED staff, as well as patient who is available to discuss patient symptoms via telephone. As per the patient awakened at approximately 0430 hrs. appearing panicked and scared and was found to have pain in his chest. EMS was notified and upon arrival the patient was found to be in distress and subsequently transported to [facility] for further care and evaluation of the aforementioned symptoms. The patient was seen and evaluated in the emergency department. All lab and imaging studies reviewed. Upon further exam the patient localized and validated that his epigastric area was the source of his pain. Patient found to have symptoms consistent with acute pancreatitis. Patient admitted to medical floor and treated with supportive care. Patient denies fever, chills, palpitation, productive cough, skin rash, recent ill contacts, ingestion of food/water from new or different sources, or known exposure to COVID-19. Prior admission on 02/25/2020 reviewed. 08/06: This morning patient evaluated and reviewed still confused I reviewed his previous hospitalization did not see that he had a neurological evaluation. He also was noted to be in A. fib although rate controlled will obtain cardiology consultation considering that he initially presented with chest pain. While he has an elevated lipase and it may have been that he got some pain medication prior to my exam there is no physical exam or imaging exam corresponded with acute pancreatitis. I have reached out to the and left her message. We will continue current management and anticipate discharge in 24 to 48 hours if patient remains stable, will obtain speech swallow and start on clear liquids and advance as tolerated. 08/07: I was able to get the patient's spoke to the her in the light of negative MRI and imaging studies, she reports that he has long standing history of dementia and as a result has significantly diminished cognitive impairment. He appears confused most of the time and does not really carry a conversation per the daughter spouse. She reports that the only reason he came to the hospital was because of the complaint of the chest pain and unable to walk. As she could not get into her regular doctor at [place]. Also updated on the findings of pancreatitis which again on my exam did not appreciate. She will appreciate him being discharged with acute follow-up with your regular doctor patient has been seen by cardiology and neurology I did advise her of the findings and the adjustments made to medication she verbalized understanding and will follow with your regular doctor for further updates. Cardiology recommends against anticoagulation due to patient's overall medical condition Spouse states he is ambulatory. 35 minutes of advance care planning conducted fully. # Cerebral atherosclerosis/CVA can not be excluded -he is aphasis , right facial droop ? remote -Hx of underlying AF on ASA #Underlying advanced dementia # hx of seizure -As per hx -he is on Valproic acid 125 mg bid -valp. level#10 -increase valproic to 250 mg tid --can give IV -EEG -Seizure precaution # Acute pancreatitis Vascular dementia Atrial fibrillation rate controlled Disposition: DC-01 TO HOME OR SELFCARE Final Discharge Diagnosis (Prints w/discharge instructions): Acute Pancreatitis Time spent for discharge: 35 mins Core Measure Documentation - Palliative Care Palliative Care/ Comfort Measures: Not Applicable - Core Measures Any of the following diagnoses?: none Exam - Physical Exam Narrative exam: VITAL SIGNS: Reviewed. GENERAL: The patient appears normally developed, Vital signs as documented. HEAD: No signs of head trauma. EYES: Pupils are equal. Extraocular motions intact. EARS: Hearing grossly intact. MOUTH: Oropharynx is normal. NECK: No adenopathy, no JVD. CHEST: Chest with clear breath sounds bilaterally. No wheezes, rales, or rhonchi. CARDIAC: Irregularly irregular rate and rhythm. S1 and S2, without murmurs, gallops, or rubs. VASCULAR: No Edema. Peripheral pulses normal and equal in all extremities. ABDOMEN: Soft, non tender and non distended. No rebound or guarding, and no masses palpated. Bowel Sounds normal. MUSCULOSKELETAL: Good range of motion of all major joints. Extremities without clubbing, cyanosis or edema. NEUROLOGIC EXAM: Awake and oriented to person only. No focal sensory or strength deficits. Speech normal. Follows commands. PSYCHIATRIC: Mood anxious SKIN: detail exam as documented in skin assessment - Constitutional Vitals: Temp Pulse Resp BP Pulse Ox 97.8 F 99 H 16 130/78 95 08/07/20 04:02 08/07/20 04:02 08/07/20 04:02 08/07/20 04:02 08/07/20 04:02 Plan Activity: advance as tolerated, fall precautions Diet: low fat (PUREED DIET) Special Instructions: record daily weights, record daily BP diary, record blood sugar diary Plan of Treatment: PLEASE FOLLOW UP WITH PRIMARY DOCTOR AND PRIMARY NEUROLOGIST. Please see updated changes to medication Please repeat valproic acid level in 2 to 3 days. Follow up with: PRIMARY CARE, [Primary Care Provider] - 3-5 Days Prescriptions: Divalproex Sprinkle [Depakote Sprinkle] 250 mg PO Q8HR #90 capsule Furosemide [Lasix TAB] 20 mg PO DAILY@0600 #30 tablet
--- NOTE | 2020-08-07 10:03 | Progress Note ---
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 Patient has diminished cognition and is unable to provide detailed history. Patient history provided by EMS staff, ED staff, as well as patient who is available to discuss patient symptoms via telephone. As per the patient awakened at approximately 0430 hrs. appearing panicked and scared -neurology asked to see # Cerebral atherosclerosis/CVA can not be excluded -he is aphasis , right facial droop ? remote -Hx of underlying AF on ASA - MRI brain is unremarkable -Echo pending -Lipid profil pending -CTA brain and neck are unremarkable -Maintain ASA and lipitor 40 mg -Lipitor 40 mg #Underlying advanced dementia - mantain amantedine -B12,TSH pending -ST to see # hx of seizure -As per hx -he is on Valproic acid 125 mg bid -valp. level#10 -increase valproic to 250 mg tid --can give IV or po -EEG is pending -Seizure precaution # Acute pancreatitis ? abdominal pain -CT scan abdomen and pelvis, - lipase level#205 -bowel rest,he is NPO -IV fluid resuscitation therapy, -pain control, - supportive care. # DVT prophylaxis -Prophylactic anticoagulation, -SCD to bilateral lower extremities while in bed, # Advance care planning -Disease education conducted, -patient is full code, plan -valproic acid 250 mg tid iv or po when possible - echo - lipitor 40 mg - asa 81 mg - Fasting lipid profil - repeat valproic acid level in sunday am -Pt/ST evaluate -restrain only prn increase activity as tolerated . will follow as needed Subjective Date of service: 08/07/20 Principal diagnosis: confusion/seizure Interval history: resting in bed no complaint, no seizure no clear speech out put slightly agitated he is resraint Objective - Vital Sign Vital Signs - 12hr 08/06/20 08/07/20 08/07/20 22:44 01:00 04:02 Temperature 97.8 F Pulse Rate 70 99 H Respiratory 18 16 Rate Blood Pressure 161/84 130/78 O2 Sat by Pulse 95 95 Oximetry - General Apperance Constitutional: other (alert not interactive follow very simple command) - EENT EENT: PERRL, mucous membranes moist - Respiratory Respiratory: lungs clear, crackles - Cardiovascular Cardiovascular: other (irregular heart rate) Extremities: no peripheral edema bilat, no clubbing, cyanosis - Gastrointestinal Gastrointestinal: normoactive bowel sounds - Integumentary Integumentary: normal - Neurologic Cranial nerve examination: PERRL, EOMI, other (slight right facial droop.) Speech examination: speech apraxia (no clear speech out put but mumble when asked question), other Detailed motor examination: grossly full strength in - Laboratory Findings CBC and BMP: 08/07/20 05:23 08/07/20 05:23 Abnormal Lab Findings: Abnormal Labs 08/05/20 08/05/20 08/05/20 08:07 08:07 08:07 RBC 5.38 H Hgb 15.9 H Hct 47.7 H Calvert % (Auto) 7.4 H Eos # (Auto) 0.5 H Sodium Carbon Dioxide Creatinine Calcium 8.3 L Total Creatine Kinase 53 L Total Protein Albumin 3.4 L Lipase 205 H Valproic Acid 10.1 L 08/06/20 08/06/20 08/07/20 05:03 05:03 05:23 RBC 5.28 H Hgb 15.6 H Hct 47.0 H Calvert % (Auto) 7.5 H Eos # (Auto) Sodium 134 L Carbon Dioxide 20 L Creatinine 0.7 L Calcium 8.1 L 7.7 L Total Creatine Kinase Total Protein 6.2 L 6.1 L Albumin 3.7 L 3.3 L Lipase Valproic Acid
[2020-08-07 11:29] LABS: Chol/HDL Ratio 3.77 %
== END 2020-08-07 13:30 | disposition home or self-care (01) | DRG 439 ==
LOC: ED 05:57 → 3A 12:11
PROVIDERS: ADMIT Internal Medicine; ATTEND Internal Medicine
DX: K85.90 Acute pancreatitis without necrosis or infection, unspecified (principal); F01.51 Vascular dementia, unspecified severity, with behavioral disturbance; I48.20 Chronic atrial fibrillation, unspecified; I67.2 Cerebral atherosclerosis; E78.00 Pure hypercholesterolemia, unspecified; I10 Essential (primary) hypertension; G40.909 Epilepsy, unspecified, not intractable, without status epilepticus; E78.5 Hyperlipidemia, unspecified; Z79.899 Other long term (current) drug therapy; Z79.891 Long term (current) use of opiate analgesic; Z79.01 Long term (current) use of anticoagulants; Z79.82 Long term (current) use of aspirin; Z90.79 Acquired absence of other genital organ(s); Z86.73 Personal history of transient ischemic attack (TIA), and cerebral infarction without residual deficits; Z87.442 Personal history of urinary calculi; Z82.49 Family history of ischemic heart disease and other diseases of the circulatory system; Z83.3 Family history of diabetes mellitus; Z88.5 Allergy status to narcotic agent
CPT/HCPCS: 36415; 70496; 70498; 70551; 71045; 74177; 80053; 80061; 80164; 81001; 82140; 82550; 82553; 83690; 84484; 85025; 85027; 85610; 85730; 93005; 96374; G0378; J1650; J2270; J7030; Q9967